=== PATIENT | female | born 1945 | race Caucasian/White ===

== ENCOUNTER 2020-02-11 11:33 | Outpatient (CLI) | payer OTHER, SELFPAY ==
[2020-02-11 11:58] LABS: Hematocrit 46.9 % (37.0-47.0); Hemoglobin 15.5 g/dL (12.0-15.0); Mean Corpuscular Hemoglobin 31.8 pg (26-34); Mean Corpuscular Volume 96.1 fl (80-100); Mean Platelet Volume 9.9 fl (7.4-10.4); Platelet Count Result 296 k/mm3 (150-375); Red Blood Count 4.88 M/mm3 (4.2-5.4); Red Cell Distribution Width 13.2 % (11.5-14.5); White Blood Count 9.2 K/mm3 (4.5-10.0)
[2020-02-11 12:05] LABS: Add Urine Microscopic? YES; Appearance Urine Turbid (Clear); Bacteria Urine Trace /hpf; Bilirubin Urine Negative (Negative); Blood Urine Negative (Negative); Color Urine Yellow (Yellow); Glucose Urine UA Negative (Negative); Ketones Urine Negative (Negative); Leukocyte Esterase Ur 1+ LEU/UL (NEGATIVE); Mucus Urine Rare /lpf; Nitrate Urine Negative (Negative); Protein Urine Negative (Negative); Specific Grav Ur 1.015 (1.001-1.035); Squamous Epithelial Cell Urine Occasional /hpf (Few); Urobilinogen Urine Negative mg/dL (<2.0); WBC Urine 0-3 /hpf (0-3)
[2020-02-11 12:24] LABS: Hemoglobin A1C 5.1 % (<5.7)
[2020-02-11 12:41] LABS: Vitamin D 25 Hydroxy 70.3 ng/mL
[2020-02-11 13:18] LABS: Albumin Level 4.3 g/dL (3.5-5.1); Alkaline Phosphatase 58 U/L (38-126); Anion Gap 12.1 mmol/L (7-16); Aspartate Amino Transferase 28 U/L (14-36); Bilirubin,Total 0.6 mg/dL (0.2-1.3); Blood Urea Nitrogen 25 mg/dL (7-17); Calcium 9.6 mg/dL (8.4-10.2); Carbon Dioxide 27 mmol/L (22-30); Chloride 100 mmol/L (98-107); Cholesterol 175 mg/dL (0-200); Estimated Glomerular Filt Rate > 60; Glucose 58 mg/dL (65-105); HDL Direct 80 mg/dL; Potassium 4.1 mmol/L (3.4-5.0); Sodium 135 mmol/L (137-145); Triglycerides 87 mg/dL (<150)
[2020-02-11 13:24] LABS: LDL Cholesterol Direct 71 mg/dL
[2020-02-11 13:37] LABS: Alanine Aminotransferase 16 U/L (4-35)
== END 2020-02-11 11:34 | disposition home or self-care (01) ==
LOC: ANHLAB 11:39
PROVIDERS: PCP Internal Medicine; Visit Provider Internal Medicine
DX: I10 Essential (primary) hypertension (principal); E78.5 Hyperlipidemia, unspecified; R31.29 Other microscopic hematuria; Z79.899 Other long term (current) drug therapy
CPT/HCPCS: 36415; 80053; 80061; 81001; 82306; 83036; 84443; 85027

== ENCOUNTER 2020-08-10 11:08 | Outpatient (CLI) | payer OTHER, SELFPAY ==
[2020-08-10 11:41] LABS: Hematocrit 45.7 % (37.0-47.0); Hemoglobin 15.3 g/dL (12.0-15.0); Mean Corpuscular HGB Conc 33.5 g/dl (32-36); Mean Corpuscular Hemoglobin 32.6 pg (26-34); Mean Corpuscular Volume 97.2 fl (80-100); Mean Platelet Volume 9.7 fl (7.4-10.4); Platelet Count Result 288 k/mm3 (150-375); Red Cell Distribution Width 13.4 % (11.5-14.5); White Blood Count 7.6 K/mm3 (4.5-10.0)
[2020-08-10 11:55] LABS: Alanine Aminotransferase 17 U/L (4-35); Albumin Level 3.9 g/dL (3.5-5.1); Alkaline Phosphatase 59 U/L (38-126); Anion Gap 5 mmol/L (8-16); Aspartate Amino Transferase 26 U/L (14-36); Bilirubin,Total 0.5 mg/dL (0.2-1.3); Blood Urea Nitrogen 15 mg/dL (7-17); Carbon Dioxide 30 mmol/L (22-30); Chloride 102 mmol/L (98-107); Estimated Glomerular Filt Rate > 60; Glucose 78 mg/dL (65-105); Potassium 4.1 mmol/L (3.4-5.0); Sodium 137 mmol/L (137-145)
== END 2020-08-10 11:09 | disposition home or self-care (01) ==
PROVIDERS: PCP Internal Medicine; Visit Provider Internal Medicine
DX: E78.5 Hyperlipidemia, unspecified (principal); I10 Essential (primary) hypertension
CPT/HCPCS: 36415; 80053; 85027

== ENCOUNTER 2020-08-18 09:33 | Outpatient (CLI) | payer OTHER, SELFPAY ==
--- NOTE | ~2020-08-18 | XR_ITS ---
EXAMINATION: XR knee LT 3V DATE: 08/18/2020 09:44 INDICATION: Left knee pain. TECHNIQUE: 3 views of left knee were obtained. COMPARISON: None. FINDINGS: There is lateral subluxation of patella. No fracture. There is severe osteoarthritis of pat ellofemoral compartment and moderate osteoarthritis of medial and lateral compartments. No knee joint effusion. IMPRESSION: 1. Severe left knee osteoarthritis. Reviewed, dictated and finalized at location A. E'S CLERK
--- NOTE | ~2020-08-18 | XR_ITS ---
EXAMINATION: XR knee RT 3V DATE: 08/18/2020 09:44 INDICATION: Right knee pain. TECHNIQUE: 3 views of right knee were obtained. COMPARISON: Right knee radiographs 02/26/2017 FINDINGS: There is lateral subluxation of patella. No fracture. There is severe osteoarthritis of med ial and patellofemoral compartments and mild osteoarthritis of lateral compartment. No knee joint eff usion. There are loose bodies in the knee joint posteriorly. IMPRESSION: 1. Severe right knee osteoarthritis. 2. Loose bodies in the knee joint. Reviewed, dictated and finalized at location A. TRAILER FILLER
== END 2020-08-18 09:34 | disposition home or self-care (01) ==
PROVIDERS: PCP Internal Medicine; Visit Provider Internal Medicine
DX: M89.49 Other hypertrophic osteoarthropathy, multiple sites (principal); M23.41 Loose body in knee, right knee
CPT/HCPCS: 73562

== ENCOUNTER → 2020-10-29 00:36 | Outpatient (CLI) | payer OTHER, SELFPAY ==
[2020-10-29 20:54] LABS: SARS-CoV-2 RNA PCR Negative
== END ==
PROVIDERS: PCP Internal Medicine; Visit Provider Internal Medicine Gastroenterology
DX: Z01.812 Encounter for preprocedural laboratory examination (principal); Z20.822 Contact with and (suspected) exposure to COVID-19
CPT/HCPCS: C9803; U0003; U0005

== ENCOUNTER 2020-11-01 02:43 | Day surgery (SDC) | payer OTHER, SELFPAY ==
[2020-10-20 12:22] VITALS: BMI 35.9
[2020-11-01 07:04] VITALS: BP 130/82; PULSE 71; RESP 18; TEMP 36.1; O2SAT 98; BMI 36.6
[2020-11-01] MEDS: LACTATED RINGERS 1,000 ML 150 ML IV CONT (07:13)
--- NOTE | 2020-11-01 07:44 | WPDANESEPPF ---
Anes - Initial Pre Proc Eval Procedure: Operation Date: 11/01/20 08:15 Proposed Procedures p Screening Colonoscopy - Austyn Dotson MD Date/Time: 11/01/20 07:44 Surgeon: Austyn Dotson MD Pre Op Diagnosis: neoplasm screening Patient Data Age: 75 Gender: F Height: 4 ft 10 in Weight: 79.5 kg Last Vital Signs Temp 97 F L 11/01/20 07:04 Pulse 71 11/01/20 07:04 Resp 18 11/01/20 07:04 BP 130/82 11/01/20 07:04 Pulse Ox 98 11/01/20 07:04 Allergies Allergy/AdvReac Type Severity Reaction Status Date / Time Penicillins Allergy Mild Hives Verified 11/01/20 07:03 Home Medications Medication Instructions Recorded Confirmed Type blood-glucose meter #1 each 02/11/20 08/18/20 Rx lancets #100 each 02/11/20 08/18/20 Rx blood sugar diagnostic #300 each 03/07/20 08/18/20 Rx lisinopril 20 mg tablet See Rx Instructions .ROUTE 07/06/20 10/20/20 Rx .COMPLEX #90 tablet atorvastatin 20 mg tablet 20 mg PO DAILY #90 tablet 08/01/20 10/20/20 Rx hydrochlorothiazide 12.5 mg tablet See Rx Instructions .ROUTE 10/03/20 10/20/20 Rx .COMPLEX #90 tablet Patient hx anesthesia problems: none Family hx anesthesia problems: none PMFSH Past Medical History Medical History (Updated 08/25/20 @ 15:41 by Stephenie Griggs, RT(R)) Arthritis Benign essential hypertension Bilateral knee pain Claustrophobia Degenerative joint disease of knee Dyslipidemia Encounter for screening colonoscopy Hx of colonic polyps Hypoglycemia Microscopic hematuria Midline low back pain without sciatica Obesity (BMI 35.0-39.9 without comorbidity) Osteoarthritis Osteopenia of necks of both femurs Shortness of breath Stress Vaccine counseling Vertigo Weight gain Surgical History Surgical History (Updated 08/25/20 @ 15:41 by Stephenie Griggs, RT(R)) History of carpal tunnel release History of cataract extraction 2019, [facility] History of cholecystectomy 1975 History of D&C 2017, Dr. Cortes History of foot surgery Bunionectomy S/P insertion of spinal cord stimulator 2019, [facility] Family History Family History (Updated 08/25/20 @ 15:41 by Stephenie Griggs, RT(R)) Father Family history of malignant neoplasm of bone Other Arthritis Social History Social History (Updated 08/25/20 @ 15:42 by Stephenie Griggs, RT(R)) Smoking status: Never smoker Alcohol intake: never Substance use: never Substance use type: does not use Gender identity (if verbalized by the patient): Female Spiritual care concerns: No Anes - Eval Final PreProcedure Day of Procedure 11/01/20 07:44 Patient weight: obese Heart: regular rate and rhythm and murmur Lungs: clear to auscultation Airway: Mallampati scale class II Neurological: alert and oriented Last oral intake: >/= 8 hours ASA classification: III Emergent: no Anesthetic plan: proceed Anesthesia type and monitoring: general GIVS and standard monitoring Informed Consent: The patient's anesthetic plan and its attendant risks and benefits were discussed with the patient/family/POA. Questions were solicited and answers provided to the satisfaction of the patient/family/POA.
--- NOTE | 2020-11-01 08:42 | PM.HPGS ---
History of Present Illness History of Present Illness Consent: Risks, benefits, and alternatives have been discussed and questions answered. Patient agrees to proceed with procedure. Chief complaint: neoplasm screening Narrative: Lyly Pham is a 75 year old female with colon polyp ~ 6 years ago. Review of Systems Constitutional: Constitutional: Denies headache(s) and Denies weakness Eyes: Eyes: Denies blurry vision ENT: Reports Normal hearing present, Denies headache(s) and Denies neck pain Cardiovascular: Cardiovascular: Denies chest pain and Denies dyspnea Respiratory: Respiratory: Denies dyspnea Gastrointestinal: Gastrointestinal: Reports no additional gastrointestinal complaints Genitourinary: Genitourinary: Denies dysuria Musculoskeletal: Musculoskeletal: Denies neck pain Integumentary/Breasts: Skin/Breast: Denies dry skin Neurologic: Reports Normal hearing present, Denies headache(s) and Denies weakness Psychiatric: Psychiatric: Denies anxiety Endocrine: Endocrine: Denies change in body appearance Hematologic/Lymphatic: Hematologic/Lymphatic: Denies easy bleeding Allergic/Immunologic: Allergic/Immunologic: Denies urticaria PMFSH Past Medical History Medical History (Updated 08/25/20 @ 15:41 by Stephenie Griggs, RT(R)) Arthritis Benign essential hypertension Bilateral knee pain Claustrophobia Degenerative joint disease of knee Dyslipidemia Encounter for screening colonoscopy Hx of colonic polyps Hypoglycemia Microscopic hematuria Midline low back pain without sciatica Obesity (BMI 35.0-39.9 without comorbidity) Osteoarthritis Osteopenia of necks of both femurs Shortness of breath Stress Vaccine counseling Vertigo Weight gain Surgical History Surgical History (Updated 08/25/20 @ 15:41 by Stephenie Griggs, RT(R)) History of carpal tunnel release History of cataract extraction 2019, [facility] History of cholecystectomy 1975 History of D&C 2017, Dr. Cortes History of foot surgery Bunionectomy S/P insertion of spinal cord stimulator 2019, [facility] Family History Family History (Updated 08/25/20 @ 15:41 by Stephenie Griggs, RT(R)) Father Family history of malignant neoplasm of bone Other Arthritis Social History Social History (Updated 08/25/20 @ 15:42 by Stephenie Griggs, RT(R)) Smoking status: Never smoker Alcohol intake: never Substance use: never Substance use type: does not use Gender identity (if verbalized by the patient): Female Spiritual care concerns: No Meds Home Medications and Allergies Home Medications Medication Instructions Recorded Confirmed Type blood-glucose meter #1 each 02/11/20 08/18/20 Rx lancets #100 each 02/11/20 08/18/20 Rx blood sugar diagnostic #300 each 03/07/20 08/18/20 Rx lisinopril 20 mg tablet See Rx Instructions .ROUTE 07/06/20 10/20/20 Rx .COMPLEX #90 tablet atorvastatin 20 mg tablet 20 mg PO DAILY #90 tablet 08/01/20 10/20/20 Rx hydrochlorothiazide 12.5 mg tablet See Rx Instructions .ROUTE 10/03/20 10/20/20 Rx .COMPLEX #90 tablet Allergies Allergy/AdvReac Type Severity Reaction Status Date / Time Penicillins Allergy Mild Hives Verified 11/01/20 07:03 Vital Signs Vital Signs - 24 hr 11/01/20 07:04 Temperature 97 F L Pulse Rate 71 Respiratory Rate 18 Blood Pressure 130/82 Pulse Oximetry 98 Exam Const: General: comfortable and no acute distress HENMT: General nose exam: Normal nares present Eyes: General: appearance normal, both eyes and all related structures Neck: Neck: no JVD Resp: Auscultation: clear to auscultation bilaterally Cardio: Rate: regular rate Rhythm: regular rhythm GI: Inspection: non-distended GI Palp: Yes Soft to palpation Skin: General skin exam: normal color Neuro: General: gait normal Speech: normal speech Extrem: General: normal to inspection Psych: Mental Status: mental status grossly normal Asses
[2020-11-01 08:46] VITALS: BP 100/57; PULSE 60; RESP 22; O2SAT 98
[2020-11-01 08:56] VITALS: BP 106/62; PULSE 54; RESP 17; O2SAT 99
[2020-11-01 09:06] VITALS: BP 114/71; PULSE 53; RESP 20; O2SAT 98
== END 2020-11-01 08:59 | disposition home or self-care (01) ==
PROVIDERS: PCP Internal Medicine; Visit Provider Internal Medicine Gastroenterology
PROC: 0DJD8ZZ Inspection of Lower Intestinal Tract, Via Natural or Artificial Opening Endoscopic (ICD-10-PCS; CPT 45378; principal; 2020-11-01 08:15)
DX: Z12.11 Encounter for screening for malignant neoplasm of colon (principal); D12.0 Benign neoplasm of cecum; D12.3 Benign neoplasm of transverse colon; K64.8 Other hemorrhoids; K57.30 Diverticulosis of large intestine without perforation or abscess without bleeding; E11.9 Type 2 diabetes mellitus without complications; E78.5 Hyperlipidemia, unspecified; E66.9 Obesity, unspecified; M85.852 Other specified disorders of bone density and structure, left thigh; M17.10 Unilateral primary osteoarthritis, unspecified knee; M85.851 Other specified disorders of bone density and structure, right thigh; R42 Dizziness and giddiness; R31.29 Other microscopic hematuria; F40.240 Claustrophobia; Z90.49 Acquired absence of other specified parts of digestive tract; Z86.010 Personal history of colon polyps; Z98.49 Cataract extraction status, unspecified eye
CPT/HCPCS: 45385; 88305; C9803; J2704; J7120; U0003; U0005

== ENCOUNTER 2021-01-25 07:22 | Outpatient (CLI) | payer OTHER, SELFPAY ==
[2021-01-25 08:19] LABS: Basophils Absolute Auto 0.1 K/mm3 (0.0-0.1); Basophils Percent Auto 1.5 % (0.2-1.2); Eosinophils Absolute Auto 0.2 K/mm3 (0-0.3); Eosinophils Percent Auto 3.6 % (0-4.4); Hematocrit 45.9 % (37.0-47.0); Hemoglobin 14.9 g/dL (12.0-15.0); Immature Granulocyte Absolute 0.01 K/mm3 (0.00-0.031); Immature Granulocyte Percent A 0.2 % (0-0.5); Lymphocytes Absolute Auto 2.23 K/mm3 (0.9-3.2); Lymphocytes Percent Auto 36.5 % (18.3-44.2); Mean Corpuscular HGB Conc 32.5 g/dl (32-36); Mean Corpuscular Hemoglobin 32.4 pg (26-34); Mean Corpuscular Volume 99.8 fl (80-100); Mean Platelet Volume 9.7 fl (7.4-10.4); Monocytes Absolute Auto 0.5 K/mm3 (0.1-0.6); Monocytes Percent Auto 7.9 % (2.6-8.5); Neutrophils Absolute Auto 3.1 K/mm3 (1.3-6.7); Neutrophils Percent Auto 50.3 % (45.5-73.1); Platelet Count Result 304 k/mm3 (150-375); White Blood Count 6.1 K/mm3 (4.5-10.0)
[2021-01-25 08:29] LABS: Alanine Aminotransferase 14 U/L (4-35); Albumin Level 3.9 g/dL (3.5-5.1); Alkaline Phosphatase 63 U/L (38-126); Anion Gap 6 mmol/L (8-16); Aspartate Amino Transferase 22 U/L (14-36); Bilirubin,Total 0.4 mg/dL (0.2-1.3); Blood Urea Nitrogen 18 mg/dL (7-17); Calcium 9.3 mg/dL (8.4-10.2); Carbon Dioxide 28 mmol/L (22-30); Chloride 104 mmol/L (98-107); Cholesterol 164 mg/dL (0-200); Estimated Glomerular Filt Rate > 60; Glucose 87 mg/dL (65-110); HDL Direct 67 mg/dL; Potassium 4.4 mmol/L (3.4-5.0); Sodium 138 mmol/L (137-145); Triglycerides 63 mg/dL (<150)
[2021-01-25 08:39] LABS: Creatinine Urine 97.4 mg/dL
[2021-01-25 08:44] LABS: MALB Creatinine Ratio 8.9 mg/g (0-30); Microalbumin Urine Random 8.7 mg/L (0-16.7)
[2021-01-25 08:46] LABS: LDL Cholesterol Direct 68 mg/dL
== END 2021-01-25 07:23 | disposition home or self-care (01) ==
PROVIDERS: PCP Internal Medicine; Visit Provider Internal Medicine
DX: E78.2 Mixed hyperlipidemia (principal); I10 Essential (primary) hypertension; E78.5 Hyperlipidemia, unspecified; E55.9 Vitamin D deficiency, unspecified
CPT/HCPCS: 36415; 80053; 80061; 82043; 82306; 84443; 85025

== ENCOUNTER 2021-01-26 09:55 | Outpatient (CLI) | payer OTHER, SELFPAY ==
--- NOTE | 2021-01-26 10:47 | ECG_ITS ---
Measurements Intervals [place] Rate: 60 P: 20 TN: 124 QRS: -11 QRSD: 85 T: 48 QT: 392 QTc: 393 Interpretive Statements SINUS RHYTHM WITH SINUS ARRHYTHMIA INCOMPLETE RIGHT BUNDLE BRANCH BLOCK DELAYED PRECORDIAL R/S TRANSITION LOW QRS VOLTAGE IN PRECORDIAL LEADS BASELINE ARTIFACT- I, III, AVR, AVL, AVF BORDERLINE ECG Electronically Signed On 01-26-2021 11:48:03 CDT by Keshawn Burks D.O.
[2021-01-26 11:47] LABS: INR 0.9; Prothrombin Time 11.9 Seconds (11.1-14.7)
[2021-01-26 11:48] LABS: Partial Thromboplastin Time 26.6 SECONDS (22.3-36.8)
[2021-01-26 11:52] LABS: Add Urine Microscopic? YES; Appearance Urine Clear (Clear); Bilirubin Urine Negative (Negative); Blood Urine 1+ (Negative); Color Urine Yellow (Yellow); Glucose Urine UA Negative (Negative); Ketones Urine Negative (Negative); Leukocyte Esterase Ur Negative LEU/UL (Negative); Mucus Urine Rare /lpf; Nitrate Urine Negative (Negative); Protein Urine Negative (Negative); Specific Grav Ur 1.017 (1.001-1.035); Squamous Epithelial Cell Urine Occasional /hpf (Few); Urobilinogen Urine Negative mg/dL (<2.0); WBC Urine 0-3 /hpf
[2021-01-26 11:56] LABS: Urine Cotinine NEGATIVE
[2021-01-26 12:00] LABS: Hemoglobin A1C 5.3 % (<5.7)
== END 2021-01-26 09:56 | disposition home or self-care (01) ==
LOC: ANHSURGERY 09:56
PROVIDERS: PCP Internal Medicine; Visit Provider Orthopaedic Surgery
DX: Z01.818 Encounter for other preprocedural examination (principal); M17.11 Unilateral primary osteoarthritis, right knee; I45.10 Unspecified right bundle-branch block; Z79.899 Other long term (current) drug therapy
CPT/HCPCS: 80307; 81001; 83036; 85610; 85730; 86850; 86900; 86901; 87081; 93005

== ENCOUNTER 2021-02-09 12:48 | Observation (INO) | payer OTHER, SELFPAY ==
[2021-01-26 10:00] VITALS: BMI 38.1
[2021-01-26 10:37] VITALS: BP 138/68; PULSE 63; RESP 16; TEMP 37; O2SAT 97
--- NOTE | 2021-02-07 15:38 | WPDANESEPPF ---
Anes - Initial Pre Proc Eval Procedure: Operation Date: 02/08/21 07:30 Proposed Procedures p Right Total Knee Arthroplasty - Geovanny Lala MD Date/Time: 02/07/21 15:38 Surgeon: Geovanny Lala MD Pre Op Diagnosis: Right Knee DJD Patient Data Age: 75 Gender: F Height: 1.45 m Weight: 80 kg Last Vital Signs Temp 37.0 C 01/26/21 10:37 Pulse 63 01/26/21 10:37 Resp 16 01/26/21 10:37 BP 138/68 01/26/21 10:37 Pulse Ox 97 01/26/21 10:37 Allergies Allergy/AdvReac Type Severity Reaction Status Date / Time Penicillins Allergy Severe Hives Verified 02/08/21 06:11 vancomycin AdvReac Mild Rash and Verified 02/08/21 06:11 itching Home Medications Medication Instructions Recorded Confirmed Type acetaminophen [Tylenol] 1,000 mg PO PRN PRN 01/26/21 02/08/21 History atorvastatin 20 mg PO HS 01/26/21 02/08/21 History biotin 1,000 mcg PO DAILY 01/26/21 02/08/21 History multivitamin,on-gfnp-ttekxuco 1 tablet PO DAILY 01/26/21 02/08/21 History [Complete Multivitamin] hydrochlorothiazide 12.5 mg PO DAILY 02/08/21 02/08/21 History lisinopril 20 mg PO DAILY 02/08/21 02/08/21 History ECG: Date of Service: 01/26/21 Procedure(s): CA 12 lead EKG Accession Number(s): [id number] cc: ~ Measurements Intervals [place] Rate: 60 P: 20 ND: 124 QRS: -11 QRSD: 85 T: 48 QT: 392 QTc: 393 Interpretive Statements SINUS RHYTHM WITH SINUS ARRHYTHMIA INCOMPLETE RIGHT BUNDLE BRANCH BLOCK DELAYED PRECORDIAL R/S TRANSITION LOW QRS VOLTAGE IN PRECORDIAL LEADS BASELINE ARTIFACT- I, III, AVR, AVL, AVF BORDERLINE ECG Electronically Signed On 01-26-2021 11:48:03 CDT by Keshawn Burks D.O. Patient hx anesthesia problems: none Family hx anesthesia problems: none PMFSH Past Medical History Medical History Arthritis Bilateral knee pain Claustrophobia Degenerative joint disease of knee Dyslipidemia Encounter for screening colonoscopy Hx of colonic polyps Hypoglycemia Microscopic hematuria Midline low back pain without sciatica Obesity (BMI 35.0-39.9 without comorbidity) Osteoarthritis Osteopenia of necks of both femurs Shortness of breath Stress Vaccine counseling Vertigo Weight gain Surgical History Surgical History History of carpal tunnel release History of cataract extraction 2018, [facility] History of cholecystectomy 1975 History of D&C 2016, Dr. Cortes History of foot surgery Bunionectomy S/P insertion of spinal cord stimulator 2019, [facility] Family History Family History Father Family history of malignant neoplasm of bone Other Arthritis Social History Social History Additional smoking assessment comments: DENIES ANY FORM OF TOBACCO USE Alcohol intake: never Substance use: never Substance use type: does not use Living arrangements: alone Gender identity (if verbalized by the patient): Female Spiritual care concerns: No Anes - Eval Final PreProcedure Day of Procedure 02/07/21 15:38 Patient weight: obese Heart: regular rate and rhythm Lungs: clear to auscultation and normal air movement Airway: Mallampati scale class II Neurological: alert and oriented Last oral intake: >/= 8 hours ASA classification: III Emergent: no Anesthetic plan: proceed Anesthesia type and monitoring: general LMA Informed Consent: The patient's anesthetic plan and its attendant risks and benefits were discussed with the patient/family/POA. Ques
--- NOTE | 2021-02-07 15:40 | WPDANESPNB ---
Anes - Peripheral Nerve Block Date/Time: 02/07/21 15:40 I have discussed with the patient/family/POA the placement of a peripheral nerve block for post-operative pain management, including associated risks, benefits, complications, and side effects. Alternative methods of post-operative analgesia were detailed. Questions were solicited and answers provided to the satisfaction of the patient/family/POA. Time-Out: A pre-procedural Time-Out was completed immediately before starting the procedure and confirmed: Patient Identification, Site, Procedure, Patient Position and the Availability of Requisite Equipment. Clinical Indications: Acute post-operative pain management requested by the operative surgeon. Nerve Block Insertion Note Anes-nerve block: adductor canal right Patient position: supine Skin prep: chlorhexidine Needle: 22 gauge, stimulating, insulated echogenic needle. Needle length: 80 mm Technique: ultrasound Technique comment: in plane Injectate: bupivacaine 0.5% with epi 5 mcg/ml (30cc) Observations: tolerated well Complications: none Procedure start time:: 740 Procedure end time:: 745
[2021-02-08] VITALS (14 sets, daily range): BP systolic 124–161; BP diastolic 55–99; PULSE 51–77; RESP 12–20; TEMP 35.8–36.5; O2SAT 94–100
[2021-02-08] MEDS: ACETAMINOPHEN 500 MG TABLET 1000 MG PO (06:38)
[2021-02-08] MEDS: LACTATED RINGERS 1,000 ML 30 ML IV CONT ×2 (06:45→10:32)
[2021-02-08] MEDS: TRANEXAMIC ACID 1,000MG/ISO100 1,000 MG/100 ML BAG 200 MG IVPB (06:48)
--- NOTE | 2021-02-08 07:32 | WPDHPUPDATE1 ---
History and Physical Update Update Date/Time: 02/08/21 07:32 History and Physical has been reviewed, including an updated exam of the patient. There are NO changes in the patient's condition. Risks, benefits, and alternatives have been discussed and questions answered. Patient agrees to proceed with procedure.
[2021-02-08] MEDS: ceFAZolin 2 GM/D5W 50 ML 2 GM/50 ML BAG IVPB ×3 (07:44→23:46)
--- NOTE | 2021-02-08 10:34 | W.PM.PROC2 ---
Procedure Note - Detailed Date of Procedure 02/08/21 Pre-op Diagnosis Right Knee DJD Post-op Diagnosis same Procedure Performed R TKA Surgeon Geovanny Lala MD Anesthesia general Description of Procedure THE RIGHT KNEE WAS PREPPED AND DRAPED IN THE STERILE FASHION. THERE WAS A 10 DEGREE FLEXION CONTRACTURE. A MIDLINE SKIN INCISION WAS MADE. A MEDIAL PARAPATELLAR ARTHROTOMY WAS MADE. THE PATELLA WAS EVERTED. THERE WAS TRICOMPARTMENT DJD. THERE WAS MINIMAL PATELLA DJD. AN INTRAMEDULLARY FREDA WAS PLACED IN THE FEMUR. A DISTAL FEMORAL CUT WAS MADE IN 5 DEGREES OF VALGUS REMOVING APPROXIMATELY 9 MM OF BONE FROM THE DISTAL FEMUR. THE FEMUR WAS SIZED TO 57.5. A 57.5 FEMORAL CUTTING BLOCK WAS PLACED IN 3 DEGREES OF EXTERNAL ROTATION AND IN ALIGNMENT WITH SAUD'S LINE AND THE TRANSEPICONDYLAR AXIS. ANTERIOR POSTERIOR AND CHAMFER CUTS WERE MADE. THE CUTS WERE EXCELLENT. NEXT AN INTRAMEDULLARY CUTTING GUIDE WAS PLACED IN THE TIBIA. A TRANS TIBIAL CUT WAS MADE ALONG THE LONG AXIS OF THE TIBIA. APPROXIMATELY 10 MM OF BONE WAS REMOVED FROM THE HIGH SIDE OF THE TIBIA. THE TIBIA WAS THEN PLANED TO A SMOOTH SURFACE. POSTERIOR FEMORAL OSTEOPHYTES WERE REMOVED FROM THE FEMORAL CONDYLES. A 71 TIBIAL TRIAL WAS PLACED IN ALIGNMENT WITH THE 1/3 MEDIAL ASPECT OF THE TIBIAL TUBERCLE. THEN A 57.5 FEMORAL TRIAL COMPONENT WAS PLACED. BOTH HAD EXCELLENT FITS. EVENTUALLY A 20 MM POLYETHYLENE TRIAL COMPONENT WAS PLACED. THE KNEE WAS TAKEN THROUGH A RANGE OF MOTION. THE KNEE CAME OUT TO FULL EXTENSION. THERE WAS NO ABNORMAL TILT TO THE PATELLA. THERE WAS GOOD A/P AND VARUS/VALGUS STABILITY. THERE WAS NO EXCESSIVE ROLL BACK WITH FLEXION. THE TRIAL COMPONENTS WERE REMOVED. THEN A 57.5 FEMORAL COMPONENT AND 71 TIBIAL COMPONENT WITH A 20 POLYETHYLENE COMPONENT WERE CEMENTED INTO PLACE. ONCE THE CEMENT WAS HARD THE KNEE WAS TAKEN THROUGH A ROM AGAIN AND FOUND TO BE STABLE WITH NO PATELLA TILT NO EXCESSIVE ROLL BACK WITH FLEXION AND GOOD STABILITY WITH COMPLETE AND FULL EXTENSION. THE KNEE WAS IRRIGATED WITH STERILE BETADINE AND WATER FOR ABOUT 3 MINUTES. THE BLEEDERS WERE CAUTERIZED. THE ARTHROTOMY WAS REPAIRED WITH NUMBER 1 VICRYL. THE SUB CUTANEOUS LAYER WITH 2-0 VICRYL AND THE SKIN WITH KASSANDRA. THE WOUND WAS WASHED AND A STERILE DRESSING WAS APPLIED. PATIENT WAS EXTUBATED. Estimated Blood Loss -150.0 Pathology none sent Complications No immediate complications Condition stable Disposition PACU
[2021-02-08] MEDS: fentaNYL CITRATE INJ (*CRX) 100 MCG/2 ML VIAL 25 MCG IV PUSH ×8 (10:39→11:14)
[2021-02-08] MEDS: ONDANSETRON INJ 4 MG/2 ML VIAL IV PUSH ×2 (12:31→17:26)
--- NOTE | 2021-02-08 12:55 | ADMGEN ---
This patient, Lyly Pham, was admitted to Medical Room 253-01. Patient/family oriented to hospital policies and general routines including ID bracelet, bed and alarms, visiting hours, pain management, procedures, bathroom and other care routines, personal items, smoking policy, room service/diet, and visiting hours. Information on how to activate the Rapid Response Team has been discussed. Patient/Family are encouraged to report perceived risks to care and to ask questions if they do not understand what they are told or what they should do.
[2021-02-08] MEDS: SODIUM CHLORIDE 0.9% IV 1,000 ML 125 ML IV CONT (13:40)
[2021-02-08] MEDS: HYDROcodone/acetaminophen (*CRX) 7.5-325 MG TABLET 1 TAB PO ×2 (13:44→23:46)
[2021-02-08] MEDS: DOCUSATE SODIUM 100 MG CAPSULE PO (16:12)
[2021-02-08] MEDS: oxyCODONE/ACETAMINOPHEN (*CRX) 5-325 MG TABLET 1 TABLET PO (17:25)
[2021-02-08] MEDS: ATORVASTATIN 20 MG TABLET PO (21:04)
[2021-02-08] MEDS: diphenhydrAMINE HCl INJ 50 MG/ML VIAL 25 MG IV PUSH (21:04)
[2021-02-08] MEDS: ASPIRIN 325 MG ENTERIC TABLET PO (21:04)
[2021-02-08] MEDS: FAMOTIDINE 20 MG TABLET PO (21:04)
--- NOTE | ~2021-02-09 | XR_ITS ---
EXAMINATION: XR knee RT 2V DATE: 02/08/2021 10:48 INDICATION: Postoperative evaluation following right total knee arthroplasty. TECHNIQUE: Anteroposterior and lateral views of the right knee were obtained. COMPARISON: 08/25/2020 FINDINGS: Right total knee arthroplasty without patellar resurfacing appears well seated and in near anatomic a lignment. No fractures identified. Small bone fragment projecting over the soft tissues medial to th e medial tibial plateau. Skin carlos eduardo and expected postoperative subcutaneous, intramedullary and int ra-articular gas. IMPRESSION: 1. Right total knee arthroplasty, negative for postoperative purposes. Reviewed, dictated and finalized at location A.
[2021-02-09 00:12] VITALS: BP 121/60; PULSE 58; RESP 20; TEMP 36.2; O2SAT 98
[2021-02-09 05:08] VITALS: BP 119/59; PULSE 63; RESP 20; TEMP 36.2; O2SAT 97
[2021-02-09 05:45] LABS: Basophils Percent Auto 0.3 % (0.2-1.2); Eosinophils Percent Auto 0.3 % (0-4.4); Hematocrit 37.7 % (37.0-47.0); Hemoglobin 12.5 g/dL (12.0-15.0); Immature Granulocyte Absolute 0.04 K/mm3 (0.00-0.031); Immature Granulocyte Percent A 0.3 % (0-0.5); Lymphocytes Absolute Auto 2.09 K/mm3 (0.9-3.2); Lymphocytes Percent Auto 17.8 % (18.3-44.2); Mean Corpuscular HGB Conc 33.2 g/dl (32-36); Mean Corpuscular Hemoglobin 32.3 pg (26-34); Mean Corpuscular Volume 97.4 fl (80-100); Mean Platelet Volume 9.7 fl (7.4-10.4); Monocytes Absolute Auto 1.4 K/mm3 (0.1-0.6); Monocytes Percent Auto 12.3 % (2.6-8.5); Neutrophils Absolute Auto 8.1 K/mm3 (1.3-6.7); Platelet Count Result 248 k/mm3 (150-375); Red Blood Count 3.87 M/mm3 (4.2-5.4); Red Cell Distribution Width 13.2 % (11.5-14.5); White Blood Count 11.7 K/mm3 (4.5-10.0)
[2021-02-09] MEDS: oxyCODONE/ACETAMINOPHEN (*CRX) 5-325 MG TABLET 1 TABLET PO ×4 (05:54→19:41)
[2021-02-09 05:59] LABS: Anion Gap 5 mmol/L (8-16); Blood Urea Nitrogen 16 mg/dL (7-17); Calcium 8.3 mg/dL (8.4-10.2); Carbon Dioxide 25 mmol/L (22-30); Chloride 101 mmol/L (98-107); Estimated Glomerular Filt Rate > 60; Glucose 111 mg/dL (65-110); Potassium 3.8 mmol/L (3.4-5.0); Sodium 131 mmol/L (137-145)
[2021-02-09] MEDS: hydroCHLOROthiazide 12.5 MG CAPSULE PO (08:14)
[2021-02-09] MEDS: DOCUSATE SODIUM 100 MG CAPSULE PO ×2 (08:14→16:53)
[2021-02-09] MEDS: ASPIRIN 325 MG ENTERIC TABLET PO ×2 (08:14→21:28)
[2021-02-09] MEDS: THERAPEUTIC MULTIVITAMINS/MINERALS TAB (*BKC) 1 TABLET PO (08:14)
[2021-02-09] MEDS: lisinopriL 20 MG TABLET PO (08:15)
[2021-02-09] MEDS: FAMOTIDINE 20 MG TABLET PO ×2 (08:15→21:28)
[2021-02-09 10:00] VITALS: BP 141/61; PULSE 65; RESP 20; TEMP 36.5; O2SAT 99
--- NOTE | 2021-02-09 10:04 | PM.PNORT ---
Progress Note: A&P Assessment and Plan (1) S/P total knee arthroplasty: Qualifiers: Laterality: right Qualified Code(s): Z96.651 - Presence of right artificial knee joint Code(s): Z96.659 - Presence of unspecified artificial knee joint Status: Acute Assessment and Plan: POD #1: Right TKA Continue PT/OT. WBAT. Walker. HIGH FALL RISK. Pain control. Ice knee. Protect skin. SCDs. Incentive Spirometry. DVT prophylaxis. Monitor dressing. Plan to change prior day of discharge. Dispo: Home with Home Health vs Acute Rehab pending progress with PT/OT. Subjective Subjective Date/Time Seen: 02/09/21 10:04 Post Op day: 1 Principal diagnosis: Right Knee DJD Interval history: POD #1: Right TKA Difficulties with nausea yesterday. Tolerating PO intake today. Pain well controlled. No new concerns today. Working with PT/OT. Review of Systems Review of Systems: All systems reviewed & are unremarkable except as noted in HPI and below Constitutional: Constitutional: Denies fever(s) and Denies headache(s) ENT: Denies headache(s) Cardiovascular: Cardiovascular: Denies chest pain, Denies diaphoresis, Denies palpitations and Denies dyspnea Respiratory: Respiratory: Denies dyspnea Gastrointestinal: Gastrointestinal: Denies abdominal pain, Denies constipation, Reports nausea and Denies vomiting Genitourinary: Genitourinary: Reports nocturia and Denies dysuria Musculoskeletal: Musculoskeletal: Reports arthralgias (Right Knee ) and Reports joint swelling (Right Knee ) Neurologic: Denies headache(s) Endocrine: Endocrine: Denies palpitations Exam Const: General: comfortable and no acute distress Resp: Effort & Inspection: normal respiratory effort Cardio: Rate: regular rate Rhythm: regular rhythm GI: GI Palp: Yes Soft to palpation, No Tenderness to palpation present (GI) and No Guarding due to palpation present (GI) Skin: Wounds: wounds noted Other: Incision c/d/i. No surrounding redness/warmth. No hematoma. Mild ecchymosis. No wound dehiscence Neuro: Cognition (Neuro): normal cognition Other: NV intact aside from block. Moves toes. Sensation intact to light touch. +ankle dorsiflexion/plantarflexion. Extrem: Right upper extremity: normal to inspection, full ROM and normal capillary refill Left upper extremity: normal to inspection, full ROM and normal capillary refill Right lower extremity: normal to inspection, full ROM (ROM limited due to recent surgical intervention ) and knee Details: tenderness (diffuse, mild ) and swelling (diffuse, mild ) Left lower extremity: normal to inspection Psych: Mental Status: mental status grossly normal Objective Data Vital Signs Vital Signs: Vital Signs - 24 hr 02/08/21 10:32 02/08/21 10:45 02/08/21 11:00 Temperature 36.5 C Pulse Rate 68 64 58 L Respiratory Rate 13 16 12 Blood Pressure 124/80 131/57 L 131/81 Pulse Oximetry 97 97 95 02/08/21 11:15 02/08/21 11:30 02/08/21 11:45 Temperature Pulse Rate 62 62 59 L Respiratory Rate 12 12 12 Blood Pressure 146/76 H 146/83 H 161/78 H Pulse Oximetry 98 97 100 02/08/21 12:15 02/08/21 12:30 02/08/21 13:00 Temperature 36.2 C L 36.3 C L 36.1 C L Pulse Rate 62 77 60 Respiratory Rate 16 16 16 Blood Pressure 138/91 H 135/81 155/63 H Pulse Oximetry 98 94 100 02/08/21 14:00 02/08/21 18:00 02/08/21 20:00 Temperature 35.9 C L 36.5 C Pulse Rate 56 L 51 L 58 L Respiratory Rate 16 16 20 Blood Pressure 141/55 H 145/79 H Pulse Oximetry 100 100 98 02/08/21 20:28 02/09/21 00:12 02/09/21 05:08 Temperature 35.8 C L 36.2 C L 36.2 C L Pulse Rate 56 L 58 L 63 Respiratory Rate 20 20 20 Blood Pressure 149/76 H 121/60 119/59 L Pulse Oximetry 98 98 97 Intake/Output Intake/Output: Intake & Output 02/06/21 02/07/21 02/08/21 02/09/21 23:59 23:59 23:59 23:59 Intake Total 1100 340 Output Total 450 Balance 650 340 Meds/Results Medications: Active Medications Generi
[2021-02-09] MEDS: ceFAZolin 2 GM/D5W 50 ML 2 GM/50 ML BAG IVPB (10:37)
--- NOTE | 2021-02-09 10:49 | P.PNAN_ITS ---
Anes - Prog Note Post-Op Date/Time: 02/09/21 10:49 Cardiovascular status: normal Respiratory status: normal Airway patency: baseline Mental status: baseline Post-Op hydration status: normal Vital Signs: Last Vital Signs Temp 36.2 C L 02/09/21 05:08 Pulse 63 02/09/21 05:08 Resp 20 02/09/21 05:08 BP 119/59 L 02/09/21 05:08 Pulse Ox 97 02/09/21 05:08 Pain Score (VAS): 0 I/O: Intake & Output 02/08/21 02/09/21 02/09/21 23:59 07:59 15:59 Intake Total 750 340 480 Output Total 450 Balance 300 340 480 Laboratory Tests 02/09/21 05:32 02/09/21 05:32 02/09/21 02/09/21 05:32 05:32 WBC 11.7 H RBC 3.87 L Hgb 12.5 Hct 37.7 MCV 97.4 MCH 32.3 MCHC 33.2 RDW 13.2 Plt Count 248 MPV 9.7 Immature Gran % (Auto) 0.3 Neut % (Auto) 69.0 Lymph % (Auto) 17.8 L [place] % (Auto) 12.3 H Eos % (Auto) 0.3 Baso % (Auto) 0.3 Lymph # (Auto) 2.09 [place] # (Auto) 1.4 H Eos # (Auto) 0.0 Baso # (Auto) 0.0 Abs Immat Gran (auto) 0.04 H Absolute Neuts (auto) 8.1 H Absolute Nucleated RBC 0.0 Nucleated RBC % 0.0 Sodium 131 L Potassium 3.8 Chloride 101 Carbon Dioxide 25 Anion Gap 5 L BUN 16 Creatinine 0.70 Estim Creat Clear Calc Not Reportable Estimated GFR > 60 Glucose 111 H Calcium 8.3 L Post-procedural complaints: none Patient Feedback: Patient satisfied with anesthetic care.
[2021-02-09 14:00] VITALS: BP 118/73; PULSE 69; RESP 20; TEMP 36.5; O2SAT 96
[2021-02-09 20:00] VITALS: BP 96/67; PULSE 72; RESP 20; TEMP 36.1; O2SAT 100
[2021-02-09] MEDS: ATORVASTATIN 20 MG TABLET PO (21:28)
[2021-02-10] MEDS: oxyCODONE/ACETAMINOPHEN (*CRX) 5-325 MG TABLET 1 TABLET PO (01:06)
[2021-02-10 05:29] VITALS: BP 111/51; PULSE 67; RESP 18; TEMP 35.9; O2SAT 96
[2021-02-10] MEDS: HYDROcodone/acetaminophen (*CRX) 7.5-325 MG TABLET 1 TAB PO ×2 (08:33→20:10)
[2021-02-10] MEDS: hydroCHLOROthiazide 12.5 MG CAPSULE PO (08:34)
[2021-02-10] MEDS: DOCUSATE SODIUM 100 MG CAPSULE PO ×2 (08:34→18:11)
[2021-02-10] MEDS: lisinopriL 20 MG TABLET PO (08:34)
[2021-02-10] MEDS: ASPIRIN 325 MG ENTERIC TABLET PO ×2 (08:34→20:06)
[2021-02-10] MEDS: THERAPEUTIC MULTIVITAMINS/MINERALS TAB (*BKC) 1 TABLET PO (08:35)
[2021-02-10] MEDS: FAMOTIDINE 20 MG TABLET PO ×2 (08:35→20:06)
--- NOTE | 2021-02-10 09:23 | PM.PNORT ---
Progress Note: A&P Assessment and Plan (1) S/P total knee arthroplasty: Qualifiers: Laterality: right Qualified Code(s): Z96.651 - Presence of right artificial knee joint Code(s): Z96.659 - Presence of unspecified artificial knee joint Status: Acute Assessment and Plan: POD #2: Right TKA Continue PT/OT. WBAT. Walker. HIGH FALL RISK. Pain control. Ice knee. Protect skin. SCDs. Incentive Spirometry. DVT prophylaxis. Monitor dressing. Change today. Dispo: Acute Rehab today Subjective Subjective Date/Time Seen: 02/10/ 09:23 POD #2: Right TKA Improvement in nausea. Tolerating PO intake today. Pain well controlled. No new concerns today. Working well with PT/OT. Review of Systems Review of Systems: All systems reviewed & are unremarkable except as noted in HPI and below Constitutional: Constitutional: Denies fever(s) and Denies headache(s) ENT: Denies headache(s) Cardiovascular: Cardiovascular: Denies chest pain, Denies diaphoresis, Denies palpitations and Denies dyspnea Respiratory: Respiratory: Denies dyspnea Gastrointestinal: Gastrointestinal: Denies abdominal pain, Denies constipation, Reports nausea and Denies vomiting Genitourinary: Genitourinary: Reports nocturia and Denies dysuria Musculoskeletal: Musculoskeletal: Reports arthralgias (Right Knee ) and Reports joint swelling (Right Knee ) Neurologic: Denies headache(s) Endocrine: Endocrine: Denies palpitations Exam Const: General: comfortable and no acute distress Resp: Effort & Inspection: normal respiratory effort Cardio: Rate: regular rate Rhythm: regular rhythm GI: GI Palp: Yes Soft to palpation, No Tenderness to palpation present (GI) and No Guarding due to palpation present (GI) Skin: Wounds: wounds noted Other: Incision c/d/i. No surrounding redness/warmth. No hematoma. Mild ecchymosis. No wound dehiscence Neuro: Cognition (Neuro): normal cognition Other: NV intact. Moves toes. Sensation intact to light touch. +ankle dorsiflexion/plantarflexion. Extrem: Right upper extremity: normal to inspection, full ROM and normal capillary refill Left upper extremity: normal to inspection, full ROM and normal capillary refill Right lower extremity: normal to inspection, full ROM (ROM limited due to recent surgical intervention ) and knee Details: tenderness (diffuse, mild ) and swelling (diffuse, mild ) Left lower extremity: normal to inspection Psych: Mental Status: mental status grossly normal Objective Data Vital Signs Vital Signs: Vital Signs - 24 hr 02/09/21 10:00 02/09/21 14:00 02/09/21 20:00 Temperature 36.5 C 36.5 C 36.1 C L Pulse Rate 65 69 72 Respiratory Rate 20 20 20 Blood Pressure 141/61 H 118/73 96/67 L Pulse Oximetry 99 96 100 02/10/21 05:29 Temperature 35.9 C L Pulse Rate 67 Respiratory Rate 18 Blood Pressure 111/51 L Pulse Oximetry 96 Intake/Output Intake/Output: Intake & Output 02/07/21 02/08/21 02/09/21 02/10/21 23:59 23:59 23:59 23:59 Intake Total 1100 1600 670 Output Total 450 400 Balance 650 1200 670 Meds/Results Medications: Active Medications Generic Name Dose Route Start Last Admin Trade Name Freq PRN Reason Stop Dose Admin Acetaminophen 1,000 mg 02/08/21 11:52 Acetaminophen 500 Mg Tablet PO PRN PRN Pain 1-3 Hydrocodone Bitart/Acetaminophen 1 tab 02/08/21 11:52 02/10/21 08:33 Hydrocodone/Acetaminophen (*Crx) 7.5-325 Mg Tablet PO 1 tab Q6H PRN Administration Pain Rated 7-10 Aspirin 325 mg 02/08/21 21:00 02/10/21 08:34 Aspirin 325 Mg Enteric Tablet PO 325 mg Q12HR SHAISTA Administration Atorvastatin Calcium 20 mg 02/08/21 21:00 02/09/21 21:28 Atorvastatin 20 Mg Tablet PO 20 mg HS SHAISTA Administration Diazepam 5 mg 02/08/21 11:52 Diazepam (*Crx) 5 Mg Tablet PO Q8H PRN Spasms Diphenhydramine HCl 25 mg 02/08/21 11:52 02/08/21 21:04 Diphenhydramine Hcl Inj 50 Mg/Ml Vial
[2021-02-10 20:00] VITALS: PULSE 87; RESP 18; O2SAT 99
[2021-02-10] MEDS: ATORVASTATIN 20 MG TABLET PO (20:06)
[2021-02-10 21:26] VITALS: BP 128/71; PULSE 87; RESP 18; TEMP 37.1; O2SAT 99
[2021-02-11] MEDS: ACETAMINOPHEN 500 MG TABLET 1000 MG PO (00:38)
[2021-02-11 00:54] VITALS: BP 114/50; PULSE 102; RESP 18; TEMP 36.7; O2SAT 97
[2021-02-11 05:50] VITALS: BP 103/53; PULSE 80; RESP 18; TEMP 36.7; O2SAT 97
[2021-02-11] MEDS: THERAPEUTIC MULTIVITAMINS/MINERALS TAB (*BKC) 1 TABLET PO (08:38)
[2021-02-11] MEDS: FAMOTIDINE 20 MG TABLET PO (08:38)
[2021-02-11] MEDS: ASPIRIN 325 MG ENTERIC TABLET PO (08:38)
[2021-02-11 08:40] VITALS: BP 96/58; PULSE 86; O2SAT 94
[2021-02-11] MEDS: DOCUSATE SODIUM 100 MG CAPSULE PO (08:41)
--- NOTE | 2021-02-16 13:03 | PM.DS ---
DS: Admitting Diagnosis Admitting Diagnosis Right Knee DJD DS: Discharge Diagnosis Discharge Diagnosis (1) S/P total knee arthroplasty: Qualifiers: Laterality: right Qualified Code(s): Z96.651 - Presence of right artificial knee joint Code(s): Z96.659 - Presence of unspecified artificial knee joint Status: Acute Assessment and Plan: Continue PT/OT. WBAT. Walker. HIGH FALL RISK. Pain control. Ice knee. Protect skin. SCDs. Incentive Spirometry. DVT prophylaxis. Monitor dressing. Change today. Dispo: Home with Home Health DS: Summary Hospital Course Reason for hospitalization: Right TKA Hospital Course: 75-year-old female admitted status post right total knee arthroplasty for postoperative medical care, pain control and mobilization with physical and occupational therapy. Patient is Ali had difficulties with nausea postoperatively but that quickly resolved. She was able to tolerate p.o. intake. Her pain was well controlled throughout her hospitalization. She did work slowly with PT and OT and initially was going to be discharged to acute rehab facility however it was determined the patient would be safe to be discharged home with on postop day 3. she will be discharged home with home health and follow-up in the outpatient orthopedic clinic in 3 weeks for re-evaluation. Prior to discharge. Patient was progressing back to her baseline. Stable prior to discharge. Status at Discharge Functional status at discharge: uses cane/walker Overall status at discharge: patient is progressing back to baseline Time Spent with Patient Time attestation: Total time spent providing and/or coordinating discharge services: Time spent: Less than 30 minutes Exam Const: General: comfortable and no acute distress Resp: Effort & Inspection: normal respiratory effort Cardio: Rate: regular rate Rhythm: regular rhythm GI: GI Palp: Yes Soft to palpation, No Tenderness to palpation present (GI) and No Guarding due to palpation present (GI) Skin: Wounds: wounds noted Other: Incision c/d/i. No surrounding redness/warmth. No hematoma. Mild ecchymosis. No wound dehiscence Neuro: Cognition (Neuro): normal cognition Other: NV intact. Moves toes. Sensation intact to light touch. +ankle dorsiflexion/plantarflexion. Extrem: Right upper extremity: normal to inspection, full ROM and normal capillary refill Left upper extremity: normal to inspection, full ROM and normal capillary refill Right lower extremity: normal to inspection, full ROM (ROM limited due to recent surgical intervention ) and knee Details: tenderness (diffuse, mild ) and swelling (diffuse, mild ) Left lower extremity: normal to inspection Psych: Mental Status: mental status grossly normal Discharge Plan Discharge Attending physician on discharge: Geovanny Lala Consulting providers: Doris Marie ; Michele Dunlap Discharging Clinician: Doris Marie Anticipated Discharge Date/Time: 02/10/21 15:00 Patient Disposition: Home Health Service Activity: may shower, no driving and follow weight bearing status Diet: as tolerated Wound Care Instructions: follow printed instructions Discharge Instructions: Per Shakila at [facility], pt to have CPM set at -5 degrees extension, and start Flexion at 80 degrees and may progress up to 110 degrees. Per Care Coordination, patient to discharge with [facility] ([phone]) for PT/OT and [facility]. Post Op Total Knee Replacement Instructions Dr. Geovanyn Lala [phone] ? Your dressing will be changed prior to your discharge. You will be sent home with one additional dressing to be changed in 5 days by the home health RN. Your carlos eduardo will be removed on the 14th day after surgery and steri-strips will be placed. ? You may shower with your dressing but do not submerge in a bath tub. ? Do not drive or operate machinery until you are released by Dr. Lala
== END 2021-02-11 12:45 | disposition home health service (06) ==
LOC: ANHSURGERY 13:04 → ANH2MED 13:04
PROVIDERS: Admitting Provider Orthopaedic Surgery; PCP Internal Medicine; Visit Provider Orthopaedic Surgery
PROC: (CPT 27447; principal; 2021-02-08 07:30)
DX: M17.0 Bilateral primary osteoarthritis of knee (principal); E78.5 Hyperlipidemia, unspecified; E16.2 Hypoglycemia, unspecified; M54.5 Low back pain; M25.561 Pain in right knee; M25.562 Pain in left knee; G89.29 Other chronic pain; E66.9 Obesity, unspecified; Z68.35 Body mass index [BMI] 35.0-35.9, adult; M85.89 Other specified disorders of bone density and structure, multiple sites; Z90.49 Acquired absence of other specified parts of digestive tract; Z96.82 Presence of neurostimulator; Z79.899 Other long term (current) drug therapy; Z79.811 Long term (current) use of aromatase inhibitors
CPT/HCPCS: 27447; 64447; 36415; 73560; 80048; 80307; 81001; 83036; 85025; 85610; 85730; 86850; 86900; 86901; 87081; 93005; 97110; 97116; 97161; 97165; 97530; 97535; A9270; C1713; C1776; G0378; J0171; J0690; J1100; J1200; J2270; J2405; J2704; J2795; J3010; J7030; J7120

== ENCOUNTER 2021-08-07 16:01 | Outpatient (CLI) | payer OTHER, SELFPAY ==
[2021-08-07 16:54] LABS: Hematocrit 46.8 % (37.0-47.0); Hemoglobin 15.1 g/dL (12.0-15.0); Mean Corpuscular HGB Conc 32.3 g/dl (32-36); Mean Corpuscular Hemoglobin 31.7 pg (26-34); Mean Corpuscular Volume 98.1 fl (80-100); Mean Platelet Volume 9.9 fl (7.4-10.4); Platelet Count Result 288 k/mm3 (150-375); Red Blood Count 4.77 M/mm3 (4.2-5.4); Red Cell Distribution Width 14.2 % (11.5-14.5); White Blood Count 6.4 K/mm3 (4.5-10.0)
[2021-08-07 17:10] LABS: Anion Gap 7 mmol/L (8-16); Blood Urea Nitrogen 15 mg/dL (7-17); Calcium 9.7 mg/dL (8.4-10.2); Carbon Dioxide 27 mmol/L (22-30); Chloride 99 mmol/L (98-107); Estimated Glomerular Filt Rate > 60; Glucose 91 mg/dL (65-110); Potassium 3.9 mmol/L (3.4-5.0); Sodium 133 mmol/L (137-145)
== END 2021-08-07 16:02 | disposition home or self-care (01) ==
LOC: ANHLAB 16:04
PROVIDERS: PCP Internal Medicine; Visit Provider Internal Medicine
DX: E78.5 Hyperlipidemia, unspecified (principal); I10 Essential (primary) hypertension
CPT/HCPCS: 36415; 80048; 85027

== ENCOUNTER → 2021-09-01 14:16 | Outpatient (CLI) | payer OTHER, SELFPAY ==
--- NOTE | ~2021-09-01 | CT_ITS ---
EXAMINATION: CT lumbar spine wo con DATE: 09/01/2021 14:34 INDICATION: Lumbar radiculopathy. TECHNIQUE: Computed tomography (CT) of the lumbar spine was performed without intravenous contrast. A utomated exposure control and iterative reconstruction technique were employed. The dose-length produ ct was 634.82 mGy-cm. COMPARISON: Lumbar spine MRI 04/06/2019 FINDINGS: There is a 19 degrees levoscoliosis of lumbar spine. There is 3 mm anterolisthesis of L5 on on T12, 3 mm retrolisthesis of T12 on L1 and L1 on L2, and 6 mm anterolisthesis of L4 on L5 and L5 o n S1. There are chronic compression fractures of T12 and L1 with 3/5 and 2/5 loss of height, respecti vely. There is a compression fracture of L2 with 2/5 loss of height, likely subacute. There is severe ly decreased disc height from T12-L1 through L3-L4, moderately decreased disc height at L4-L5, and se verely decreased disc height at L5-S1 with endplate remodeling. Epidural electrodes enter the central spinal canal at T11-T12. The topogram demonstrates the tips at T8-T9 and T7, respectively. The follo wing disc levels are specifically discussed: L1-L2: The disc does not extend beyond the endplate margin. There is moderate right and mild left fac et joint osteoarthritis. There is moderate right and mild left neural foraminal stenosis. There is mi ld central canal stenosis. L2-L3: The disc is bulging. There is severe right and mild left facet joint osteoarthritis. There is moderate right and mild left neural foraminal stenosis. There is mild central canal stenosis. L3-L4: The disc is bulging. There is severe bilateral facet joint osteoarthritis. There is mild bilat eral neural foraminal stenosis. There is mild central canal stenosis. L4-L5: The disc is bulging. There is severe bilateral facet joint osteoarthritis. There is moderate a nd mild left neural foraminal stenosis. There is mild central canal stenosis at the midline. There is severe stenosis of right lateral recess. L5-S1: The disc does not extend beyond the endplate margin. There is severe bilateral facet joint ost eoarthritis. There is mild right and moderate left neural foraminal stenosis. There is mild central c anal stenosis. IMPRESSION: 1. Severe lumbar spondylosis. 2. L2 compression fracture, likely subacute. 3. Lumbar levoscoliosis. Reviewed, dictated and finalized at location A. THERAPIST
== END ==
PROVIDERS: PCP Internal Medicine; Visit Provider Nurse Practitioner Adult Health
DX: M47.26 Other spondylosis with radiculopathy, lumbar region (principal)
CPT/HCPCS: 72131

== ENCOUNTER → 2021-09-18 11:43 | Outpatient (CLI) | payer OTHER, SELFPAY ==
--- NOTE | ~2021-09-18 | US_ITS ---
EXAMINATION: US pelvic complete w TV DATE: 09/18/2021 12:05 INDICATION: Postmenopausal bleeding Comparison:No prior studies for comparison. TECHNIQUE: Multiple transabdominal and endovaginal sonographic images of the pelvis performed. FINDINGS: The uterus measures 9.5 x 7.3 x 7.6 cm. There is a uterine fibroid measuring 7.2 x 6.4 x 6. 1 cm limiting evaluation of the endometrium. The ovaries are not visualized. There is no free fluid in the pelvis. There are no abnormal masses seen on either side. IMPRESSION: 1. Enlarged uterus containing a 7.2 cm uterine fibroid. Endometrium not adequately visualized due to fibroid changes. Reviewed, dictated and finalized at location B. IMPRESSION: 1. Enlarged uterus containing a 7.2 cm uterine fibroid. Endometrium not adequat panchito visualized due to fibroid changes.
== END ==
PROVIDERS: PCP Internal Medicine; Visit Provider Student in an Organized Health Care Education/Training Program
DX: N95.0 Postmenopausal bleeding (principal); N85.2 Hypertrophy of uterus; D25.9 Leiomyoma of uterus, unspecified
CPT/HCPCS: 76830; 76856

== ENCOUNTER 2021-09-25 08:34 | Outpatient (CLI) | payer OTHER, SELFPAY ==
--- NOTE | ~2021-09-25 | NM_ITS ---
EXAMINATION: NM bone scan whole body DATE: 09/25/2021 13:53 INDICATION: Age-related osteoporosis with current pathologic fracture TECHNIQUE: 25.0 mCi Tc-99m HDP was administered intravenously. Delayed whole-body scintigrams were o btained. COMPARISON: CT lumbar spine dated 09/01/2021 FINDINGS: There are scattered likely degenerative joint centered uptake at the bilateral shoulders, wrists, fee t and ankles and at the left knee and patellofemoral compartment of the right knee. Photopenic defect at the right knee consistent with a total knee arthroplasty. There is increased intramedullary uptak e along the mid to distal right femur and proximal half of the right tibia likely related to residual postoperative changes associated with the arthroplasty. Horizontal band of increased uptake associat ed with the previously noted recent-appearing L2 compression fracture. Additional foci increased upta ke at the right side of the lower thoracic spine in the region of the T9 costovertebral articulation and T10-T11 facet joint. Lumbar dextrocurvature with increased uptake associated with severe facet os teoarthritis throughout the mid to lower lumbar spine. IMPRESSION: 1. Increased uptake associated with a relatively recent-appearing L2 compression fracture. 2. Typical and relatively symmetric pattern of scattered bilateral likely degenerative joint centered uptake with change of prior right total knee arthroplasty. Reviewed, dictated and finalized at location A. IMPRESSION: 1. Increased uptake associated with a relatively recent-appearing L2 compressio n fracture. 2. Typical and relatively symmetric pattern of scattered bilateral likely degen erative joint centered uptake with change of prior right total knee arthroplast y.
== END 2021-09-25 08:35 | disposition home or self-care (01) ==
PROVIDERS: PCP Internal Medicine; Visit Provider Nurse Practitioner Adult Health
DX: M80.08XA Age-related osteoporosis with current pathological fracture, vertebra(e), initial encounter for fracture (principal); Z96.651 Presence of right artificial knee joint
CPT/HCPCS: 78306; A9561

== ENCOUNTER 2022-03-14 08:18 | Outpatient (CLI) | payer OTHER, SELFPAY ==
[2022-03-14 08:57] LABS: Alanine Aminotransferase 11 U/L (6-35); Albumin Level 3.9 g/dL (3.5-5.1); Alkaline Phosphatase 66 U/L (38-126); Anion Gap 6 mmol/L (8-16); Aspartate Amino Transferase 22 U/L (14-36); Bilirubin,Total 0.5 mg/dL (0.2-1.3); Blood Urea Nitrogen 19 mg/dL (7-17); Calcium 9.3 mg/dL (8.4-10.2); Carbon Dioxide 26 mmol/L (22-30); Chloride 104 mmol/L (98-107); Cholesterol 182 mg/dL (0-200); Estimated Glomerular Filt Rate > 60; Glucose 84 mg/dL (65-110); HDL Direct 66 mg/dL; Potassium 4.2 mmol/L (3.4-5.0); Sodium 136 mmol/L (137-145); Triglycerides 79 mg/dL (<150)
[2022-03-14 09:08] LABS: LDL Cholesterol Direct 71 mg/dL
[2022-03-14 09:43] LABS: Vitamin D 25 Hydroxy 40.2 ng/mL
== END 2022-03-14 08:19 | disposition home or self-care (01) ==
PROVIDERS: PCP Internal Medicine; Visit Provider Internal Medicine
DX: E78.5 Hyperlipidemia, unspecified (principal); E55.9 Vitamin D deficiency, unspecified; I10 Essential (primary) hypertension; Z79.899 Other long term (current) drug therapy
CPT/HCPCS: 36415; 80053; 80061; 82306

== ENCOUNTER 2022-05-22 13:22 | Outpatient (CLI) | payer OTHER, SELFPAY ==
--- NOTE | ~2022-05-22 | DEXA_ITS ---
Bone Density Report Name: NITA FIORE Age: 77 Sex: Female Ethnicity: White Date of : 1945 Indication: postmenopausal; screening for osteoporosis; height loss; Referring Provider: GADIEL, [facility] Study: Bone densitometry was performed. Exam Date: May 22, 2022 Accession number: [id number] Bone Density: Region BMD T-score Z-score Classification AP Spine(L1, L4) 1.003 -0.3 2.3 Normal Femoral Neck (Left) 0.678 -1.5 0.7 Osteopenia Total Hip (Left) 0.844 -0.8 1.2 Normal Femoral Neck (Right) 0.571 -2.5 -0.2 Osteoporosis Total Hip (Right) 0.806 -1.1 0.9 Osteopenia Total Hip Mean 0.825 -1.0 1.1 Normal World Health Organization criteria for BMD impression classify patients as: Normal (T-score at or above -1.0), Osteopenia (T-score between -1.0 and -2.5), or Osteoporosis (T-score at or below -2.5). 10-year Fracture Risk: FRAX not reported because: Some T-score for Spine Total or Hip Total or Femoral Neck at or below -2.5 Clinical Information Provided by Patient: Has used the following medications: Vitamin D, Calcium Patient maximum height was 58 Drinks caffeinated beverages Onset of menses at age 8 Number of children 2 Impression: The patient has osteoporosis, based on the Right Femoral Neck T-score. Discussion: INCREASED RISK OF FRACTURE. BONE DENSITY IS UNDESIRABLY LOW AT ONE OR MORE SKELETAL SITES, CONSISTENT WITH POSTMENOPAUSAL OSTEOPOROSIS. This patient's lowest T-score meets the World Health Organization's (WHO) criteria for osteoporosis at one or more sites (T-score -2.5 or below). In untreated patients, the risk of osteoporotic fracture increases approximately two-fold for each 1.0 SD decrease in T-score. Low bone density is not the only risk factor for fracture; also consider factors such as patient's age, frailty or poor health, risk of falling, risk of injury, previous osteoporotic fracture, family history of osteoporosis, cigarette smoking, low body weight, etc. Not everyone with low bone mineral density has osteoporosis; osteomalacia and other metabolic bone disorders should also be considered. Patients who have osteoporosis should be evaluated for specific diseases and conditions (secondary causes) that may cause or contribute to bone loss. The [place] [employer] Endocrinologists (AACE) and National Osteoporosis Foundation (NOF) recommend pharmacologic intervention for all postmenopausal women whose T-score is in this range. The patient should follow a healthful lifestyle (good nutrition with adequate calcium and vitamin D, and appropriate weight-bearing exercise). Follow-Up: Consider a repeat BMD and Vertebral Fracture Assessment (VFA) exam in 2 years or sooner if medically necessary, to reassess this patient's status. Reported by: PEREZ on 05/22/2022 1:
== END 2022-05-22 13:23 | disposition home or self-care (01) ==
PROVIDERS: PCP Internal Medicine; Visit Provider Internal Medicine
DX: M85.852 Other specified disorders of bone density and structure, left thigh (principal); M85.851 Other specified disorders of bone density and structure, right thigh; M81.0 Age-related osteoporosis without current pathological fracture
CPT/HCPCS: 77080

== ENCOUNTER 2022-09-17 09:51 | Outpatient (CLI) | payer OTHER, SELFPAY ==
[2022-09-17 10:57] LABS: Alanine Aminotransferase 18 U/L (6-35); Albumin Level 4.1 g/dL (3.5-5.1); Alkaline Phosphatase 63 U/L (38-126); Anion Gap 3 mmol/L (8-16); Aspartate Amino Transferase 25 U/L (14-36); Bilirubin,Total 0.5 mg/dL (0.2-1.3); Blood Urea Nitrogen 18 mg/dL (7-17); Calcium 8.9 mg/dL (8.4-10.2); Carbon Dioxide 29 mmol/L (22-30); Chloride 99 mmol/L (98-107); Cholesterol 166 mg/dL (0-200); Estimated Glomerular Filt Rate > 60; Glucose 82 mg/dL (65-110); HDL Direct 67 mg/dL; Potassium 4.1 mmol/L (3.4-5.0); Sodium 131 mmol/L (137-145); Triglycerides 78 mg/dL (<150)
[2022-09-17 11:08] LABS: LDL Cholesterol Direct 70 mg/dL
[2022-09-17 11:27] LABS: Vitamin D 25 Hydroxy 60.2 ng/mL
== END 2022-09-17 09:52 | disposition home or self-care (01) ==
PROVIDERS: PCP Nurse Practitioner; Visit Provider Nurse Practitioner
DX: E78.5 Hyperlipidemia, unspecified (principal); Z79.899 Other long term (current) drug therapy; E55.9 Vitamin D deficiency, unspecified; I10 Essential (primary) hypertension
CPT/HCPCS: 36415; 80053; 80061; 82306

== ENCOUNTER 2023-03-20 14:23 | Outpatient (CLI) | payer OTHER, SELFPAY ==
[2023-03-20 15:08] LABS: Alanine Aminotransferase 17 U/L (6-35); Albumin Level 3.7 g/dL (3.5-5.1); Alkaline Phosphatase 50 U/L (38-126); Anion Gap 2 mmol/L (8-16); Aspartate Amino Transferase 27 U/L (14-36); Bilirubin,Total 0.5 mg/dL (0.2-1.3); Blood Urea Nitrogen 18 mg/dL (7-17); Calcium 8.7 mg/dL (8.4-10.2); Carbon Dioxide 30 mmol/L (22-30); Chloride 100 mmol/L (98-107); Estimated Glomerular Filt Rate > 60; Glucose 89 mg/dL (65-110); Potassium 3.9 mmol/L (3.4-5.0); Sodium 132 mmol/L (137-145)
== END 2023-03-20 14:24 | disposition home or self-care (01) ==
PROVIDERS: PCP Nurse Practitioner; Visit Provider Nurse Practitioner
DX: E78.5 Hyperlipidemia, unspecified (principal)
CPT/HCPCS: 36415; 80053

== ENCOUNTER 2023-03-21 06:39 | Outpatient (CLI) | payer OTHER, SELFPAY ==
[2023-03-21 07:59] LABS: Cholesterol 157 mg/dL (0-200); HDL Direct 72 mg/dL; Triglycerides 52 mg/dL (<150)
[2023-03-21 08:11] LABS: LDL Cholesterol Direct 63 mg/dL
== END 2023-03-21 06:40 | disposition home or self-care (01) ==
PROVIDERS: PCP Nurse Practitioner; Visit Provider Nurse Practitioner
DX: E78.5 Hyperlipidemia, unspecified (principal)
CPT/HCPCS: 36415; 80061

== ENCOUNTER → 2023-08-09 11:13 | Outpatient (CLI) | payer OTHER, SELFPAY ==
--- NOTE | ~2023-08-09 | US_ITS ---
EXAMINATION: US pelvic complete w TV DATE: 08/09/2023 11:36 INDICATION: Postmenopausal bleeding TECHNIQUE: Multiple transabdominal and endovaginal sonographic images of the pelvis were obtained. COMPARISON: 09/18/2021 FINDINGS: The uterus measures 7.8 x 4.4 x 7.4 cm. There is a 6.8 x 6.4 x 6.2 cm uterine mass of the a ppearance of an intramural fibroid. The endometrial complex is obscured by uterine mass. No definite endometrial thickening is identified. The ovaries are not visualized however no adnexal abnormality i s seen. There is no free fluid in the pelvis. IMPRESSION: 1. Intramural uterine fibroid obscuring visualization of the endometrium. No definite endometrial abn ormality identified. Reviewed, dictated and finalized at location F. [employer] IMPRESSION: 1. Intramural uterine fibroid obscuring visualization of the endometrium. No de finite endometrial abnormality identified.
== END ==
PROVIDERS: PCP Obstetrics & Gynecology; Visit Provider Obstetrics & Gynecology
DX: D25.9 Leiomyoma of uterus, unspecified (principal); N95.0 Postmenopausal bleeding
CPT/HCPCS: 76830; 76856

== ENCOUNTER 2023-09-25 08:43 | Outpatient (CLI) | payer OTHER, SELFPAY ==
[2023-09-25 09:43] LABS: Anion Gap 1 mmol/L (8-16); Blood Urea Nitrogen 24 mg/dL (7-17); Calcium 9.4 mg/dL (8.4-10.2); Carbon Dioxide 30 mmol/L (22-30); Chloride 104 mmol/L (98-107); Estimated Glomerular Filt Rate > 60; Glucose 57 mg/dL (65-110); Potassium 4.6 mmol/L (3.4-5.0); Sodium 135 mmol/L (137-145)
== END 2023-09-25 08:44 | disposition home or self-care (01) ==
LOC: ANHSURGERY 08:51
PROVIDERS: Anesthesiology; PCP Family Medicine; Visit Provider Obstetrics & Gynecology
DX: Z01.818 Encounter for other preprocedural examination (principal); Z51.81 Encounter for therapeutic drug level monitoring
CPT/HCPCS: 36415; 80048

== ENCOUNTER 2023-10-02 00:58 | Day surgery (SDC) | payer OTHER, SELFPAY ==
[2023-09-24 15:30] VITALS: BMI 27.6
--- NOTE | 2023-09-24 15:50 | PC.NURSE ---
Report to the Outpatient Waiting Room, entrance under the green pavilion located off [facility], at time __6:30AM on date ___10/02/23____. Planned Procedure Time: ___8:30AM . Time changes happen often and if your time is changed the preop area will call you the afternoon before. - You and your visitor will be asked to self-screen and do not enter if you have any COVID symptoms. - A mask is optional within the hospital at this time. Patients may have clear liquids (water, carbonated beverages, clear teas, apple juice) until 3 hours prior to surgery with a maximum of 20 ounces. - No food from midnight until time of surgery. Take the following medications with a SIP of water the morning of surgery: ____NONE DO NOT STOP ANY OF YOUR OTHER PRESCRIPTION MEDICATIONS PRIOR TO SURGERY ?EXCEPT THE FOLLOWING Medications to discontinue per physician ___HOLD ALL VITAMINS/SUPPLEMENTS 3 DAYS PRE-OP PER ANESTHESIA Date to take last dose 09/28/23 Please no make-up, nail yemeni, hairspray, perfume, deodorant, or body powder the day of surgery. No jewelry (including any body piercings) or valuables the day of surgery, leave them at home. Please take a shower or bath the night before, or the morning of, surgery with an antibacterial soap. Wear comfortable, loose fitting clothing. - Jewelry must be removed prior to entering the operating room. Rings and piercings that are not removed may be cut off. - The hospital will not accept responsibility for valuables. - Please leave all valuables, including medications, at home the day of surgery. If you are going home after surgery, a licensed tanker truck driver must drive you home. - NO public transportation without another adult if you receive anesthesia. - We recommend that an adult stay with you for 24 hours following discharge. - We also recommend that you do not drive, make important decision, drink alcoholic beverages, or take any drugs that were not prescribed by your health care provider for at least 24 hours after your discharge time. Follow any additional instructions given to you from your surgeon. If you or anyone in your household have experienced Covid symptoms in the past week, please notify your surgeon or the nurse liaison at the phone number below for possible testing. Telephone instructions given to ____PATIENT and asked if any additional questions and then verbalized understanding. Patient advised to call surgeon office or pre surgery nurse liaison [phone] if any additional questions.
--- NOTE | 2023-09-25 10:03 | SUR.PREOP ---
received call from lab that pt had a critical glucose of 57, drawn this am. contacted pt by phone at 1000 to follow up. denies being diabetic/hypoglycemic. States she didn't eat breakfast this am prior to lab draw. Has eaten breakfast, and states feels fine.
--- NOTE | 2023-10-01 15:52 | PM.IMHP ---
H&P: HPI History of Present Illness Date/Time: 10/01/23 15:52 Chief Complaint: Postmenopausal spotting. Narrative: Patient with recent episode of postmenopausal spotting in June. Unable to assess endometrial thickness on ultrasound. She was recommended for endometrial sampling. She had a benign office endometrial biopsy two years ago for episode of postmenopausal bleeding. She has had several episodes of postmenopausal bleeding in the past with benign workup. She has a fibroid uterus. She declines hysterectomy. She agreed to dilation and curettage and hysteroscopy. Review of Systems Review of Systems: All systems reviewed & are unremarkable except as noted in HPI and below Constitutional: Constitutional: Reports no additional constitutional complaints Eyes: Eyes: Reports no additional eye complaints Cardiovascular: Cardiovascular: Reports no additional cardiovascular complaints Respiratory: Respiratory: Reports no additional respiratory complaints Gastrointestinal: Gastrointestinal: Reports no additional gastrointestinal complaints Genitourinary: Genitourinary: Reports no additional female genitourinary complaints and Reports as per HPI Integumentary/Breasts: Skin/Breast: Reports system reviewed and no additional complaints, except as docu Neurologic: Reports system reviewed and no additional complaints, except as documented Psychiatric: Psychiatric: Reports no additional psychiatric complaints Hematologic/Lymphatic: Hematologic/Lymphatic: Reports no additional hematologic/lymphatic complaints [facility] Past Medical History Medical History Arthritis Bilateral knee pain Claustrophobia Degenerative joint disease of knee Dyslipidemia Encounter for screening colonoscopy Hx of colonic polyps Hypoglycemia Microscopic hematuria Midline low back pain without sciatica Obesity (BMI 35.0-39.9 without comorbidity) Osteoarthritis Osteopenia of necks of both femurs Persistent hematuria Shortness of breath Stress Vaccine counseling Vertigo Weight gain Surgical History Surgical History History of carpal tunnel release History of cataract extraction 2019, [facility] History of cholecystectomy 1975 History of D&C 2017, Dr. Cortes History of foot surgery Bunionectomy S/P insertion of spinal cord stimulator 2019, [facility] S/P total knee arthroplasty Family History Family History Father Family history of malignant neoplasm of bone Other Arthritis Social History Social History Smoking status: Never smoker Second hand tobacco smoke exposure: No Additional smoking assessment comments: DENIES ANY FORM OF TOBACCO USE Alcohol intake: never Substance use: never Substance use type: does not use Lack of Transportation: No Lack of Food: Never True Current Housing: I Have Housing Concerned About Future Housing: No Difficulty Paying Gas/Electric Bills: No Difficulty Paying for Meds: No Currently Unemployed: No Education: Bachelor's Degree Difficulty w/ Childcare or Family Care: No Living arrangements: alone Occupation/Education: retired Gender identity (if verbalized by the patient): Female Spiritual care concerns: No Meds Home Medications and Allergies Home Medications Medication Instructions Recorded Confirmed Type biotin 1,000 mcg chewable tablet 1,000 mcg PO DAILY 01/26/21 09/25/23 History multivitamin,[id number] 1 tablet PO DAILY 01/26/21 09/25/23 History atorvastatin 20 mg tablet 20 mg PO DAILY #90 tabs 07/09/23 09/25/23 Rx ibuprofen 200 mg tablet 400 mg PO Q6H PRN Pain 09/24/23 09/25/23 History lisinopril 20 mg tablet 20 mg PO QAM 09/24/23 09/25/23 History alendronate 70 mg tablet See Rx Instructions .Route 09/25/23 Rx
--- NOTE | 2023-10-02 07:09 | WPDANESEPPF ---
Anes - Initial Pre Proc Eval Procedure: Operation Date: 10/02/23 08:30 Proposed Procedures p Hysteroscopy, Dilation and Curettage with Removal of Any Endometrial Lesions if Necessary - Bradly Miller MD Date/Time: 10/02/23 07:09 Surgeon: Bradly Miller MD Pre Op Diagnosis: post menopausal bleeding Patient Data Age: 78 Gender: F Height: 1.42 m Weight: 56 kg Allergies Allergy/AdvReac Type Severity Reaction Status Date / Time Penicillins Allergy Severe Hives Verified 09/25/23 08:20 vancomycin AdvReac Mild Rash and Verified 09/25/23 08:20 itching Home Medications Medication Instructions Recorded Confirmed Type biotin 1,000 mcg chewable tablet 1,000 mcg PO DAILY 01/26/21 09/25/23 History multivitamin,fw-xkhb-bnprbsst 1 tablet PO DAILY 01/26/21 09/25/23 History atorvastatin 20 mg tablet 20 mg PO DAILY #90 tabs 07/09/23 09/25/23 Rx ibuprofen 200 mg tablet 400 mg PO Q6H PRN Pain 09/24/23 09/25/23 History lisinopril 20 mg tablet 20 mg PO QAM 09/24/23 09/25/23 History alendronate 70 mg tablet See Rx Instructions .Route 09/25/23 Rx .COMPLEX #12 tabs hydrochlorothiazide 12.5 mg tablet See Rx Instructions .Route 10/01/23 Rx .COMPLEX #90 tabs Patient hx anesthesia problems: none Family hx anesthesia problems: none Results Review: All pre-operative results and documents have been reviewed as part of the pre-operative evaluation. [facility] Past Medical History Medical History Arthritis Bilateral knee pain Claustrophobia Degenerative joint disease of knee Dyslipidemia Encounter for screening colonoscopy Hx of colonic polyps Hypoglycemia Microscopic hematuria Midline low back pain without sciatica Obesity (BMI 35.0-39.9 without comorbidity) Osteoarthritis Osteopenia of necks of both femurs Persistent hematuria Shortness of breath Stress Vaccine counseling Vertigo Weight gain Surgical History Surgical History History of carpal tunnel release History of cataract extraction 2018, [facility] History of cholecystectomy 1975 History of D&C 2016, Dr. Gingrich History of foot surgery Bunionectomy S/P insertion of spinal cord stimulator 2019, [facility] S/P total knee arthroplasty Family History Family History Father Family history of malignant neoplasm of bone Other Arthritis Social History Social History Smoking status: Never smoker Second hand tobacco smoke exposure: No Additional smoking assessment comments: DENIES ANY FORM OF TOBACCO USE Alcohol intake: never Substance use: never Substance use type: does not use Lack of Transportation: No Lack of Food: Never True Current Housing: I Have Housing Concerned About Future Housing: No Difficulty Paying Gas/Electric Bills: No Difficulty Paying for Meds: No Currently Unemployed: No Education: Bachelor's Degree Difficulty w/ Childcare or Family Care: No Living arrangements: alone Occupation/Education: retired Gender identity (if verbalized by the patient): Female Spiritual care concerns: No Anes - Eval Final PreProcedure Day of Procedure 10/02/23 07:09 Patient weight: overweight Heart: regular rate and rhythm Lungs: clear to auscultation Airway: Mallampati scale class II Neurological: alert and oriented Last oral intake: >/= 8 hours ASA classification: III Emergent: no Anesthetic plan: proceed Anesthesia type and monitoring: general GIVS and standard monitoring Results Review: All pre-operative results and documents have been reviewed as part of the pre-operative evaluation. Informed Consent: The patient's anesthetic plan and its attendant risks and benefits were discussed with the patient/family/POA. Questions were solicited and answers provided
--- NOTE | 2023-10-02 07:25 | WPDHPUPDATE1 ---
History and Physical Update Update Date/Time: 10/02/23 07:25 History and Physical has been reviewed, including an updated exam of the patient. There are NO changes in the patient's condition. Risks, benefits, and alternatives have been discussed and questions answered. Patient agrees to proceed with procedure.
[2023-10-02] MEDS: LACTATED RINGERS 1,000 ML 30 ML IV CONT (08:00)
[2023-10-02] MEDS: ACETAMINOPHEN 500 MG TABLET 1000 MG PO (08:09)
[2023-10-02 08:11] VITALS: BP 119/65; PULSE 111; RESP 16; TEMP 36.3; O2SAT 98
[2023-10-02] MEDS: ceFAZolin 2 GM/D5W 50 ML 2 GM/50 ML BAG IVPB (08:37)
[2023-10-02] MEDS: LIDOCAINE 1% BUFFERED WITH 8.4% SODIUM BICARB 1 ML SYRINGE 10 ML INFILTRATE (08:51)
[2023-10-02 09:09] VITALS: BP 97/74; PULSE 92; RESP 16; O2SAT 95
--- NOTE | 2023-10-02 09:16 | W.PM.PROC2 ---
Procedure Note - Detailed Date of Procedure 10/02/23 Pre-op Diagnosis post menopausal bleeding Fibroid uterus Post-op Diagnosis Same Procedure Performed Diagnostic hysteroscopy with curettage and shavings of endometrial lesion. Surgeon Bradly Miller MD Anesthesia MAC and Local Indications Postmenopausal bleeding. Findings Uterus sound to 8 cm the cavity was atrophic appearing mass effect from the fibroid which decreased the size of the cavity. There were some areas at the fundus which appeared to be calcified fibroid and the area was biopsied. During the biopsy with the of [place] a there was some an area at the calcified fibroid appearing lesion which was poked through with the biopsy, did not go through full thickness. No active bleeding from it. Unable to determine if this was partial myometrial or calcified fibroid. Hemostasis noted. Description of Procedure After informed consent was obtained patient was taken to operative adequate IV sedation was administered she was placed in high lithotomy position and prepped and draped in sterile fashion attention was turned to the vagina speculum inserted. Single-tooth tenaculum placed on anterior lip of the cervix. She was injected at the cervical vaginal interface with 1% plain lidocaine at 258 and 10 position total of 10 cc. The uterus was sounded to 8 cm the hysteroscope was inserted there was noted to be mass effect on most of the left side of the uterus. There was an area at her fundus which appeared to be firm and appeared to have a calcified fibroid appearance. This area was biopsied with the of [place] and at the time it did feel like a calcified fibroid unable to remove all of it because it was mostly imbedded below the myometrium but did obtain tissue from it for tissue diagnosis. During the biopsy did poke through this area. It was further evaluated could not see any full-thickness type of perforation it appeared to be similar tissue consistent with calcified fibroid at this possible perforation site. Also a small area beneath it which was removed with the Aveta instrument. A curettage was performed minimal tissue. Hemostasis was noted at os and tenaculum site. Distending fluid discrepancy 350cc. Estimated Blood Loss 5 Drains No Packing No Pathology Yes (scant curettings and shavings) Complications No immediate complications Condition Stable Disposition Same day [facility] Billing Surgery - Charge Forward: Surgery Billing
[2023-10-02 09:35] VITALS: BP 99/72; PULSE 98; O2SAT 98
[2023-10-02 09:55] VITALS: BP 108/75; PULSE 47
== END 2023-10-02 10:02 | disposition home or self-care (01) ==
PROVIDERS: PCP Family Medicine; Visit Provider Obstetrics & Gynecology
PROC: 0U5B8ZZ Destruction of Endometrium, Via Natural or Artificial Opening Endoscopic (ICD-10-PCS; CPT 58563; principal; 2023-10-02 08:30)
DX: N95.0 Postmenopausal bleeding (principal); D25.9 Leiomyoma of uterus, unspecified; E78.5 Hyperlipidemia, unspecified
CPT/HCPCS: 58558; 36415; 80048; 88305; A9270; J0690; J2405; J2704; J3010; J7120

== ENCOUNTER 2023-10-10 08:40 | Outpatient (CLI) | payer OTHER, SELFPAY ==
[2023-10-10 08:54] LABS: Basophils Absolute Auto 0.1 K/mm3 (0.0-0.1); Eosinophils Absolute Auto 0.1 K/mm3 (0-0.3); Eosinophils Percent Auto 1.6 % (0-4.4); Hematocrit 44.7 % (37.0-47.0); Hemoglobin 15.1 g/dL (12.0-15.0); Immature Granulocyte Absolute 0.03 K/mm3 (0.00-0.031); Immature Granulocyte Percent A 0.6 % (0-0.5); Lymphocytes Absolute Auto 1.03 K/mm3 (0.9-3.2); Lymphocytes Percent Auto 21.2 % (18.3-44.2); Mean Corpuscular HGB Conc 33.8 g/dl (32-36); Mean Corpuscular Hemoglobin 33.5 pg (26-34); Mean Corpuscular Volume 99.1 fl (80-100); Mean Platelet Volume 9.7 fl (7.4-10.4); Monocytes Absolute Auto 0.6 K/mm3 (0.1-0.6); Monocytes Percent Auto 12.3 % (2.6-8.5); Neutrophils Absolute Auto 3.1 K/mm3 (1.3-6.7); Neutrophils Percent Auto 63.3 % (45.5-73.1); Platelet Count Result 232 k/mm3 (150-375); Red Blood Count 4.51 M/mm3 (4.2-5.4); Red Cell Distribution Width 13.9 % (11.5-14.5); White Blood Count 4.9 K/mm3 (4.5-10.0)
[2023-10-10 09:02] LABS: Alanine Aminotransferase 16 U/L (6-35); Albumin Level 3.9 g/dL (3.5-5.1); Alkaline Phosphatase 60 U/L (38-126); Anion Gap 2 mmol/L (4-12); Aspartate Amino Transferase 25 U/L (14-36); Bilirubin,Total 0.6 mg/dL (0.2-1.3); Blood Urea Nitrogen 16 mg/dL (7-17); Calcium 9.2 mg/dL (8.4-10.2); Carbon Dioxide 30 mmol/L (22-30); Chloride 100 mmol/L (98-107); Estimated Glomerular Filt Rate > 60; Glucose 89 mg/dL (65-110); Potassium 4.1 mmol/L (3.4-5.0); Sodium 132 mmol/L (137-145)
== END 2023-10-10 08:41 | disposition home or self-care (01) ==
LOC: ANHLAB 08:41
PROVIDERS: PCP Family Medicine; Visit Provider Family Medicine
DX: Z00.00 Encounter for general adult medical examination without abnormal findings (principal); E78.5 Hyperlipidemia, unspecified
CPT/HCPCS: 36415; 80053; 85025

== ENCOUNTER 2023-12-31 00:19 | Day surgery (SDC) | payer OTHER, SELFPAY ==
[2023-12-16 08:52] VITALS: BMI 27.6
[2023-12-31 08:31] VITALS: BP 133/64; PULSE 52; RESP 20; TEMP 36.4; O2SAT 100
[2023-12-31] MEDS: LACTATED RINGERS 1,000 ML 150 ML IV CONT (08:43)
--- NOTE | 2023-12-31 08:59 | PM.HPGS ---
History of Present Illness History of Present Illness Consent: Risks, benefits, and alternatives have been discussed and questions answered. Patient agrees to proceed with procedure. Chief complaint: Pers. hx. colon polyps Narrative: Lyly Pham is a 78 year old female with colon polyps in 2020 Review of Systems Review of Systems: All systems reviewed & are unremarkable except as noted in HPI and below PMFSH Past Medical History Medical History (Updated 12/31/23 @ 09:00 by Austyn Dotson MD) Arthritis Bilateral knee pain Claustrophobia Colon polyp Degenerative joint disease of knee Dyslipidemia Encounter for screening colonoscopy Hx of colonic polyps Hypoglycemia Microscopic hematuria Midline low back pain without sciatica Obesity (BMI 35.0-39.9 without comorbidity) Osteoarthritis Osteopenia of necks of both femurs Persistent hematuria Shortness of breath Stress Vaccine counseling Vertigo Weight gain Surgical History Surgical History History of carpal tunnel release History of cataract extraction 2018, [facility] History of cholecystectomy 1975 History of D&C 2016, Dr. Cortes History of foot surgery Bunionectomy S/P insertion of spinal cord stimulator 2019, [facility] S/P total knee arthroplasty Family History Family History Father Family history of malignant neoplasm of bone Other Arthritis Social History Social History Smoking status: Never smoker Second hand tobacco smoke exposure: No Additional smoking assessment comments: DENIES ANY FORM OF TOBACCO USE Alcohol intake: never Substance use: never Substance use type: does not use Lack of Transportation: No Lack of Food: Never True Current Housing: I Have Housing Concerned About Future Housing: No Difficulty Paying Gas/Electric Bills: No Difficulty Paying for Meds: No Currently Unemployed: No Education: Bachelor's Degree Difficulty w/ Childcare or Family Care: No Living arrangements: alone Occupation/Education: retired Gender identity (if verbalized by the patient): Female Spiritual care concerns: No Meds Home Medications and Allergies Home Medications Medication Instructions Recorded Confirmed Type biotin 1,000 mcg chewable tablet 1,000 mcg PO DAILY 01/26/21 12/16/23 History multivitamin,vy-toml-xxpqbaig 1 tablet PO DAILY 01/26/21 12/16/23 History atorvastatin 20 mg tablet 20 mg PO DAILY #90 tabs 07/09/23 12/16/23 Rx ibuprofen 200 mg tablet 400 mg PO Q6H PRN Pain 09/24/23 12/16/23 History lisinopril 20 mg tablet 20 mg PO QAM 09/24/23 12/31/23 History alendronate 70 mg tablet See Rx Instructions .Route 09/25/23 12/16/23 Rx .COMPLEX #12 tabs Allergies Allergy/AdvReac Type Severity Reaction Status Date / Time Penicillins Allergy Severe Hives Verified 12/31/23 08:29 vancomycin AdvReac Mild Rash and Verified 12/31/23 08:29 itching Vital Signs Vital Signs - 24 hr 12/31/23 08:31 Temperature 97.6 F Pulse Rate 52 L Respiratory Rate 20 Blood Pressure 133/64 Pulse Oximetry 100 Oxygen Delivery Room Air Exam Const: General: comfortable and no acute distress HENMT: Face/Nose/Sinus: Normal nares present Eyes: General: appearance normal, both eyes and all related structures Neck: Neck: no JVD Resp: Auscultation: clear to auscultation bilaterally Cardio: Rate: regular rate Rhythm: regular rhythm GI: Inspection: non-distended GI Palp: Yes Soft to palpation Skin: General skin exam: normal color Neuro: General: gait normal Speech: normal speech Extrem: General: normal to inspection Psych: Mental Status: mental status grossly normal Assessment and Plan Assessment and plan (1) Colon polyp: Code(s): K63.5 - Polyp of colon Status: Acute Asses
--- NOTE | 2023-12-31 09:10 | WPDANESEPPF ---
Anes - Initial Pre Proc Eval Procedure: Operation Date: 12/31/23 09:30 Proposed Procedures p Colonoscopy - Austyn Dotson MD Date/Time: 12/31/23 09:10 Surgeon: Austyn Dotson MD Pre Op Diagnosis: Pers. hx. colon polyps Patient Data Age: 78 Gender: F Height: 1.42 m Weight: 55.3 kg Last Vital Signs Temp 36.4 C 12/31/23 08:31 Pulse 52 L 12/31/23 08:31 Resp 20 12/31/23 08:31 BP 133/64 12/31/23 08:31 Pulse Ox 100 12/31/23 08:31 O2 Del Method Room Air 12/31/23 08:31 Allergies Allergy/AdvReac Type Severity Reaction Status Date / Time Penicillins Allergy Severe Hives Verified 12/31/23 08:29 vancomycin AdvReac Mild Rash and Verified 12/31/23 08:29 itching Home Medications Medication Instructions Recorded Confirmed Type biotin 1,000 mcg chewable tablet 1,000 mcg PO DAILY 01/26/21 12/16/23 History multivitamin,xs-xcas-rfadiusl 1 tablet PO DAILY 01/26/21 12/16/23 History atorvastatin 20 mg tablet 20 mg PO DAILY #90 tabs 07/09/23 12/16/23 Rx ibuprofen 200 mg tablet 400 mg PO Q6H PRN Pain 09/24/23 12/16/23 History lisinopril 20 mg tablet 20 mg PO QAM 09/24/23 12/31/23 History alendronate 70 mg tablet See Rx Instructions .Route 09/25/23 12/16/23 Rx .COMPLEX #12 tabs Patient hx anesthesia problems: none Family hx anesthesia problems: none Results Review: All pre-operative results and documents have been reviewed as part of the pre-operative evaluation. [facility] Past Medical History Medical History Arthritis Bilateral knee pain Claustrophobia Colon polyp Degenerative joint disease of knee Dyslipidemia Encounter for screening colonoscopy Hx of colonic polyps Hypoglycemia Microscopic hematuria Midline low back pain without sciatica Obesity (BMI 35.0-39.9 without comorbidity) Osteoarthritis Osteopenia of necks of both femurs Persistent hematuria Shortness of breath Stress Vaccine counseling Vertigo Weight gain Surgical History Surgical History History of carpal tunnel release History of cataract extraction 2019, [facility] History of cholecystectomy 1975 History of D&C 2017, Dr. Cortes History of foot surgery Bunionectomy S/P insertion of spinal cord stimulator 2019, [facility] S/P total knee arthroplasty Family History Family History Father Family history of malignant neoplasm of bone Other Arthritis Social History Social History Smoking status: Never smoker Second hand tobacco smoke exposure: No Additional smoking assessment comments: DENIES ANY FORM OF TOBACCO USE Alcohol intake: never Substance use: never Substance use type: does not use Lack of Transportation: No Lack of Food: Never True Current Housing: I Have Housing Concerned About Future Housing: No Difficulty Paying Gas/Electric Bills: No Difficulty Paying for Meds: No Currently Unemployed: No Education: Bachelor's Degree Difficulty w/ Childcare or Family Care: No Living arrangements: alone Occupation/Education: retired Gender identity (if verbalized by the patient): Female Spiritual care concerns: No Anes - Eval Final PreProcedure Day of Procedure 12/31/23 09:10 Patient weight: normal Heart: regular rate and rhythm Lungs: clear to auscultation Airway: Mallampati scale class II Neurological: alert and oriented Last oral intake: >/= 8 hours ASA classification: III Emergent: no Anesthetic plan: proceed Anesthesia type and monitoring: general GIVS and standard monitoring Results Review: All pre-operative results and documents have been reviewed as part of the pre-operative evaluation. Informed Consent: The patient's anesthetic plan and its attendant risks and benefits were discussed wit
[2023-12-31 09:55] VITALS: BP 99/54; PULSE 59; RESP 17; O2SAT 98
[2023-12-31 10:05] VITALS: BP 105/60; PULSE 69; RESP 14; O2SAT 99
[2023-12-31 10:15] VITALS: BP 134/77; PULSE 63; RESP 20; O2SAT 99
== END 2023-12-31 10:15 | disposition home or self-care (01) ==
PROVIDERS: PCP Family Medicine; Visit Provider Internal Medicine Gastroenterology
PROC: 0DJD8ZZ Inspection of Lower Intestinal Tract, Via Natural or Artificial Opening Endoscopic (ICD-10-PCS; CPT 45378; principal; 2023-12-31 09:30)
DX: Z12.11 Encounter for screening for malignant neoplasm of colon (principal); D12.0 Benign neoplasm of cecum; K57.30 Diverticulosis of large intestine without perforation or abscess without bleeding; E78.5 Hyperlipidemia, unspecified
CPT/HCPCS: 45380; 88305; J1596; J2001; J2704; J7120

== ENCOUNTER 2024-04-10 09:51 | Outpatient (CLI) | payer OTHER, SELFPAY ==
[2024-04-10 10:35] LABS: Hematocrit 45.5 % (37.0-47.0); Hemoglobin 14.6 g/dL (12.0-15.0); Mean Corpuscular HGB Conc 32.1 g/dl (32-36); Mean Corpuscular Hemoglobin 32.1 pg (26-34); Mean Platelet Volume 9.9 fl (7.4-10.4); Platelet Count Result 242 k/mm3 (150-375); Red Blood Count 4.55 M/mm3 (4.2-5.4); Red Cell Distribution Width 13.8 % (11.5-14.5)
[2024-04-10 10:49] LABS: Alanine Aminotransferase 14 U/L (6-35); Albumin Level 3.9 g/dL (3.5-5.1); Alkaline Phosphatase 55 U/L (38-126); Anion Gap 5 mmol/L (4-12); Aspartate Amino Transferase 27 U/L (14-36); Bilirubin,Total 0.7 mg/dL (0.2-1.3); Blood Urea Nitrogen 16 mg/dL (7-17); Calcium 9.3 mg/dL (8.4-10.2); Carbon Dioxide 28 mmol/L (22-30); Chloride 102 mmol/L (98-107); Cholesterol 169 mg/dL (0-200); Estimated Glomerular Filt Rate > 60; Glucose 83 mg/dL (65-110); HDL Direct 82 mg/dL; Potassium 4.5 mmol/L (3.4-5.0); Sodium 135 mmol/L (137-145); Triglycerides 59 mg/dL (<150)
[2024-04-10 11:00] LABS: LDL Cholesterol Direct 59 mg/dL
[2024-04-10 11:07] LABS: Vitamin D 25 Hydroxy 49.5 ng/mL
== END 2024-04-10 09:52 | disposition home or self-care (01) ==
LOC: ANHLAB 09:57
PROVIDERS: PCP Family Medicine; Visit Provider Family Medicine
DX: E78.5 Hyperlipidemia, unspecified (principal); E55.9 Vitamin D deficiency, unspecified; E66.9 Obesity, unspecified; R42 Dizziness and giddiness
CPT/HCPCS: 36415; 80053; 80061; 82306; 85027

== ENCOUNTER 2024-08-12 11:33 | Outpatient (CLI) | payer OTHER, SELFPAY ==
--- NOTE | ~2024-08-12 | XR_ITS ---
HISTORY: M53.3 - Sacrococcygeal disorders, not elsewhere classified COMPARISON: None TECHNIQUE: 2 views of the SI joints were obtained along with a frontal view of the sacrum FINDINGS: Diffuse bony demineralization is noted. Significant degenerative disease within the visualized portion of the lumbar spine. Superior lateral joint space narrowing and sclerosis is identified within the bilateral femoral aceta bular joint spaces. A furrier designer for a spinal pain device projects over the vertebral body of L5, to the right of midline. Degenerative disease is identified within the bilateral sacroiliac joint spaces with narrowing and sc lerosis. Degenerative disease is also noted within the pubic symphysis with osteophyte formation and joint spa ce narrowing. IMPRESSION: Significant degenerative disease, without acute fracture, as detailed above. Reviewed, dictated and finalized at location A. PHONE RECORDER
--- NOTE | ~2024-08-12 | XR_ITS ---
AP and lateral views of the left hip Clinical history: Pain Findings: No acute fracture or dislocation is seen. Osseous alignment is anatomic. Left hip joint dem onstrates mild degenerative change. Soft tissues are unremarkable. Impression: Mild left hip joint degenerative change. Reviewed, dictated and finalized at [facility]. TY DIRECTOR OF PUBLIC WORKS Impression: Mild left hip joint degenerative change.
--- OUTSIDE RECORDS SUMMARY | 2024-08-12 13:09 | XMS_ITS | Clinical Summary ---
Author Organization [facility] Address [address] [place] [address] Care Team Providers Care Supervisor Personnel Clerks Name Role Phone Edu Hills MD Primary Care Provider [phone] Encounters Date Type Department Care Team Description 05/28/2024 9:17 AM BUILDING DRAFTER - 05/28/2024 11:59 PM BUILDING DRAFTER Hospital Encounter [facility] [address] [place] [address] Edu Hills MD Discharge Disposition: Home or Self Care (Routine Discharge) 05/28/2024 Travel from Last 3 Months Social History Tobacco Use Types Packs/Day Years Used Date Smoking Tobacco: Never Assessed Comments Unknown Sex and Gender Information Value Date Recorded Sex Assigned at Not on file Legal Sex Female 5:00 PM CDT Gender Identity Not on file Sexual Orientation Not on file Plan of Treatment Health Maintenance Due Date Last Done Comments DTaP, Tdap and Td Vaccines (1 - Tdap) 1962 Annual Medicare Wellness Visit 2008 Zoster Vaccines (2 of 2) 12/03/2023 10/08/2023 RSV Immunization or 60+ Years Completed 04/01/2023 Pneumococcal Vaccine: 65+ Years Completed 10/08/2023 COVID-19 Vaccine Completed 04/15/2024, , 04/06/2022, Additional history exists Influenza Adult Completed 04/15/2024, 03/09, 04/06/2022, Additional history exists Dexa Scan (General) Completed 05/28/2024 Meningococcal B Vaccine Aged Out No l onger eligible based on patient's age to complete this topic Meningococcal Vaccine Aged Out No kathia rupa eligible based on patient's age to complete this topic RSV Immunizations Under 20 Months Aged Out No longer eligible based on patient's age to complete this topic Procedures Procedure Name Priority Date/Time Associated Diagnosis Comments BONE DENSITY/DEXA Routine 05/28/2024 9:5 3 AM BUILDING DRAFTER Other specified disorders of bone density and structure, right thigh Other specified disorders of bone density and structure, left thigh from Last 3 Months Results * BONE DENSITY/DEXA (05/28/2024 9:53 AM BUILDING DRAFTER) Anatomical Region Laterality Modality Bone Mammography 05/28/2024 10:1 1 AM BUILDING DRAFTER Impressions 05/28/2024 10:11 AM BUILDING DRAFTER IMPRESSION: WHO Classification: Osteoporosis. RECOMMENDATIONS: All patients should ensure an adequate intake of dietary calcium and vitamin D. The NOF recommend adults under the age of 50 need 1000 mg of calcium and 400-800 IU of vitamin D daily. Effective therapy for the prevention and treatment of osteoporosis include bisphosphonates. FOLLOW-UP: People with diagnosed cases of osteoporosis or at high risk for fracture should have regular bone mineral density test. For patients eligible for Medicare, routine testing is allowed once every 2 years. Testing frequency can be increased to one year for patients who have rapidly progressing disease, those who are receiving or discontinuing medical therapy to restore bone mass, or have additional risk factors. Ordered By: EDU HILLS Interpreted By: Freddie Agrawal, 05/28/2024 10:11 AM Narrative 05/28/2024 10:11 AM BUILDING DRAFTER [facility] [place] [address] EXAMINATION: BONE DENSITY/DEXA INDICATIONS: Other specified disorders of bone density and structure, right thigh, Other specified disorders of bone density and structure, left thigh COMPARISON: None TECHNIQUE: DEXA bone mineral density evaluation was performed in the AP projection over the lumbar spine and both hips utilizing standard imaging techniques. FINDINGS: Vertebroplasty changes at L2. The BMD measured at the AP spine L3-L4 is 0.639 g/cm? with a T-score of -4.2. The BMD measured at the left femoral neck is 0.636 g/cm? with a T-score of -1.9. The BMD measured at the left hip is 0.862 g/cm? with a T-score of -0.7. The BMD measured at the right femoral neck is 0.619 g/cm? with a T-score of - 2.1. The BMD measured at the right hip is 0.889 g/cm? with a T-score of -0.4. FRAX 10-year fracture risk: Major Osteoporotic Fracture: 38% Hip Fracture: 24% Procedure Note Freddie Agrawal MD - 05/28/2024 [facility] [place] [address] EXAMINATION: BONE DENSITY/DEXA INDICATIONS: Other specified disorders of bone density and structure,right thigh, Other specified disorders of bone density and structure, leftthigh COMPARISON: None TECHNIQUE: DEXA bone mineral density evaluation was performed in the APprojection over the lumbar spine and both hips utilizing standard imagingtechniques. FINDINGS: Vertebroplasty changes at L2. The BMD measured at the AP spine L3-L4 is 0.639 g/cm? with a T-score of-4.2. The BMD measured at the left femoral neck is 0.636 g/cm? with a T-score of-1.9. The BMD measured at the left hip is 0.862 g/cm? with a T-score of -0.7. The BMD measured at the right femoral neck is 0.619 g/cm? with a T-scoreof -2.1. The BMD measured at the right hip is 0.889 g/cm? with a T-score of -0.4. FRAX 10-year fracture risk: Major Osteoporotic Fracture: 38% Hip Fracture: 24% IMPRESSION: WHO Classification: Osteoporosis. RECOMMENDATIONS: All patients should ensure an adequate intake of dietary calcium andvitamin D. The NOF recommend adults under the age of 50 need 1000 mg ofcalcium and 400-800 IU of vitamin D daily. Effective therapy for theprevention and treatment of osteoporosis include bisphosphonates. FOLLOW-UP: People with diagnosed cases of osteoporosis or at high risk for fractureshould have regular bone mineral density test. For patients eligible forMedicare, routine testing is allowed once every 2 years. Testing frequencycan be increased to one year for patients who have rapidly progressingdisease, those who are receiving or discontinuing medical therapy torestore bone mass, or have additional risk factors. Ordered By: EDU HILLS Interpreted By: Freddie Agrawal, 05/28/2024 10:11 AM us Edu Hills MD DEXA Final Result from Last 3 Months Insurance [employer] Care Teams Supervisor Personnel Clerks Relationship Specialty Start Date End Date Edu Hills MD [address] [place] [address] PCP - General FAMILY PRACTICE 05/26/24
== END 2024-08-12 11:34 | disposition home or self-care (01) ==
PROVIDERS: PCP Family Medicine; Visit Provider Nurse Practitioner Family
DX: M16.12 Unilateral primary osteoarthritis, left hip (principal); M53.3 Sacrococcygeal disorders, not elsewhere classified
CPT/HCPCS: 72202; 73502

== ENCOUNTER 2024-10-03 11:15 | Outpatient (CLI) | payer OTHER, SELFPAY ==
--- NOTE | ~2024-10-03 | US_ITS ---
EXAMINATION: US pelvic complete w TV INDICATION: Postmenopausal bleeding Comparison:Ultrasound dated 08/09/2023 TECHNIQUE: Multiple transabdominal and endovaginal sonographic images of the pelvis performed. FINDINGS: The uterus measures 9.6 x 8.8 x 8.2 cm. There is an enlarging intramural mass measuring 7.7 x 6.8 x 6.3 cm compared with 6.8 x 6.47 x 6.2 cm on prior examination, consistent with intramural fi broid. This mass obscures the endometrium. The ovaries are not visualized, likely atrophic. There is no free fluid in the pelvis. There are no abnormal masses seen on either side. IMPRESSION: 1. Enlarging intramural mass of the uterus measuring up to 7.7 cm, compatible with fibroid. Endometri um is obscured by this mass. Reviewed, dictated and finalized at location A. IMPRESSION: 1. Enlarging intramural mass of the uterus measuring up to 7.7 cm, compatible w ith fibroid. Endometrium is obscured by this mass.
== END 2024-10-03 11:16 | disposition home or self-care (01) ==
LOC: MICIMG 11:15
PROVIDERS: PCP Family Medicine; Visit Provider Obstetrics & Gynecology
DX: N95.0 Postmenopausal bleeding (principal); D25.9 Leiomyoma of uterus, unspecified
CPT/HCPCS: 76830; 76856

== ENCOUNTER 2024-10-08 10:11 | Outpatient (NON) | payer OTHER, SELFPAY ==
--- OUTSIDE RECORDS SUMMARY | 2024-10-09 10:35 | XMS_ITS | Clinical Summary ---
Author Organization [facility] Address [address] [place] [address] Care Team Providers Care Icer Machine Operator Name Role Phone Edu Hills MD Primary Care Provider [phone] Social History Tobacco Use Types Packs/Day Years [...] Zoster Vaccines (2 of 2) 12/03/2023 10/08/2023 COVID-19 Vaccine ( season) 2024 04/15/2024, 04/01/2023, 04/06/2022, Additional history exists RSV Immunization or 60+ Years Completed 04/01/2023 Pneumococcal Vaccine: 65+ Years Completed 10/08/2023 Influenza Adult Completed 04/15/2024, 03/09, 04/06/2022, Additional [...] BONE DENSITY/DEXA Routine 05/28/2024 9:5 3 AM FOOD SERVICE TECHNICIAN Other specified disorders of bone density and structure, right thigh Other specified disorders of bone density and structure, left thigh from Last 3 Months or Most Recently Relevant to Health Maintenance Results * BONE DENSITY/DEXA (05/28/2024 9:53 AM FOOD SERVICE TECHNICIAN) Anatomical Region Laterality Modality Bone Mammography 05/28/2024 10:1 1 AM FOOD SERVICE TECHNICIAN Impressions 05/28/2024 10:11 AM FOOD SERVICE TECHNICIAN IMPRESSION: WHO Classification: Osteoporosis. RECOMMENDATIONS: All patients [...] 05/28/2024 10:11 AM Narrative 05/28/2024 10:11 AM FOOD SERVICE TECHNICIAN [facility] [address] [place] [address] EXAMINATION: BONE DENSITY/DEXA INDICATIONS: Other specified disorders [...] Procedure Note Freddie Agrawal MD - 05/28/[address] [facility] [address] [place] [address] EXAMINATION: BONE DENSITY/DEXA INDICATIONS: Other specified disorders [...] DEXA Final Result from Last 3 Months or Most Recently Relevant to Health Maintenance Insurance Care Teams Icer Machine Operator Relationship Specialty Start Date End Date Edu Hills MD [address] [place] [address] PCP - General FAMILY PRACTICE 05/26/24
== END 2024-10-08 10:12 | disposition home or self-care (01) ==
LOC: ANHLAB 10-09 10:11
PROVIDERS: PCP Family Medicine; Visit Provider Plastic Surgery
DX: L57.8 Other skin changes due to chronic exposure to nonionizing radiation (principal); C44.92 Squamous cell carcinoma of skin, unspecified
CPT/HCPCS: 88305

== ENCOUNTER 2024-10-15 09:36 | Outpatient (CLI) | payer OTHER, SELFPAY ==
[2024-10-15 10:01] LABS: Hematocrit 44.3 % (37.0-47.0); Hemoglobin 14.3 g/dL (12.0-15.0); Mean Corpuscular HGB Conc 32.3 g/dl (32-36); Mean Corpuscular Hemoglobin 32.1 pg (26-34); Mean Corpuscular Volume 99.3 fl (80-100); Mean Platelet Volume 9.7 fl (7.4-10.4); Platelet Count Result 281 k/mm3 (150-375); Red Blood Count 4.46 M/mm3 (4.2-5.4); Red Cell Distribution Width 14.1 % (11.5-14.5); White Blood Count 7.4 K/mm3 (4.5-10.0)
[2024-10-15 10:52] LABS: Vitamin D 25 Hydroxy 57.2 ng/mL
[2024-10-15 13:24] LABS: Alanine Aminotransferase 16 U/L (6-35); Alkaline Phosphatase 56 U/L (38-126); Anion Gap 7 mmol/L (4-12); Aspartate Amino Transferase 25 U/L (14-36); Bilirubin,Total 0.6 mg/dL (0.2-1.3); Blood Urea Nitrogen 18 mg/dL (7-17); Calcium 9.2 mg/dL (8.4-10.2); Carbon Dioxide 27 mmol/L (22-30); Chloride 101 mmol/L (98-107); Estimated Glomerular Filt Rate > 60; Glucose 78 mg/dL (65-110); Potassium 4.6 mmol/L (3.4-5.0); Sodium 135 mmol/L (137-145)
== END 2024-10-15 09:37 | disposition home or self-care (01) ==
PROVIDERS: PCP Family Medicine; Visit Provider Family Medicine
DX: R42 Dizziness and giddiness (principal); E55.9 Vitamin D deficiency, unspecified; E66.9 Obesity, unspecified; I10 Essential (primary) hypertension
CPT/HCPCS: 36415; 80053; 82306; 85027

== ENCOUNTER 2024-12-28 10:59 | Outpatient (CLI) | payer OTHER, SELFPAY ==
--- NOTE | ~2024-12-28 | XR_ITS ---
3 VIEWS LUMBAR SPINE Ordering provider: Celestina Rice APRN History: . M46.1 - Sacroiliitis, not elsewhere classified . Comparison: None. FINDINGS: VERTEBRAL BODIES: Compression fractures of T12 and L1 which are most likely chronic. Vertebroplasty i s seen in L2. Levoscoliosis. Spondylolisthesis at the level of L5-S1. Degenerative changes of the spi ne. No visible acute fracture or subluxation. DISK SPACES: Narrowing of all the disc spaces in the lumbar area. Multilevel facet degenerative disease. Left hip osteoarthritic changes. SOFT TISSUES: Normal. Spinal stimulator is seen. IMPRESSION: No acute osseous abnormality lumbar spine. Compression fractures of T12 and L1 most likely chronic. Multilevel degenerative disc disease. Reviewed, dictated and finalized at location A.
== END 2024-12-28 11:00 | disposition home or self-care (01) ==
PROVIDERS: PCP Family Medicine; Visit Provider Nurse Practitioner Adult Health
DX: M46.1 Sacroiliitis, not elsewhere classified (principal); M47.896 Other spondylosis, lumbar region; S22.080A Wedge compression fracture of T11-T12 vertebra, initial encounter for closed fracture; S32.010A Wedge compression fracture of first lumbar vertebra, initial encounter for closed fracture; X58.XXXA Exposure to other specified factors, initial encounter
CPT/HCPCS: 72110

== ENCOUNTER 2025-02-23 05:56 | Day surgery (SDC) | payer OTHER, SELFPAY ==
[2025-02-16 10:08] VITALS: BMI 28.9
--- NOTE | ~2025-02-23 | XR_ITS ---
EXAM: XR fluoroscopy no charge - 02/23/2025 8:00 CDT History: 79 years old Female with LEFT L5-S1, S1 TRANSFORAMINAL EPIDURAL STEROID INJ Fluoroscopy time: 16.9 seconds FINDINGS/ IMPRESSION: Multiple fluoroscopic images of epidural steroid injection. Reviewed, dictated and finalized at location A.
--- OUTSIDE RECORDS SUMMARY | 2025-02-23 06:57 | XMS_ITS | Clinical Summary ---
Author Organization [facility] Address [address] [place] [address] Care Team Providers Care Operator Coating Furnace Name Role Phone Alfonso Lacy MD Primary Care Provider Allergies Active Allergy Reactions Criticality Noted Date Comments Penicillins Hives,Other (See comments) Medium 06/01/2019 felt like I was out of my head Medications lisinopril (PRINIVIL,ZESTRIL ) 20 mg tabletIndications :hypertension Take 1 tablet (20 mg total) by mouth nanny caregiver before breakfast Active multivit-folic qxsw-iwbi-doo C 400-50-500 mcg-mg-mg capsuleIndication s:Vitamin Deficiency Prevention,Supple ment Take 1 tablet by mouth nanny caregiver before breakfast Active celecoxib (CeleBREX) 100 mg capsuleIndication s:Pain Take 1 capsule (100 mg total) by mouth 2 (two) times a day Active denosumab (PROLIA) 60 mg/mL syringeIndication s:postmenopausal osteoporosis and high fracture risk Inject 1 mL (60 mg total) under the skin every 6 (six) months Active turmeric root extract 500 mg capsuleIndication s:Supplement Take 1 tablet by mouth nanny caregiver before breakfast Active calcium carbonate-vit D3-min 600 mg-10 mcg (400 unit) tabletIndications :Hypocalcemia Prevention,Preven tion of Vitamin D Deficiency Take 1 tablet by mouth nanny caregiver before breakfast Active acetaminophen (TYLENOL) 500 mg tablet Take 2 tablets (1,000 mg total) by mouth every 6 (six) hours as needed for pain 30 tablet 2 Active Active Problems Problem Noted Date Diagnosed Date Fibroid 11/03/2024 Lumbar radiculopathy 06/01/2019 Overview (06/01/2019): Added automatically from request for surgery [id number] Encounters Date Type Department Care Team Description 12/25/2024 3:20 PM CDT Office Visit [facility] Obstetrics and Gynecology [address] [facility] [address] [place] [address] [place] [address] Nataliia Salcedo MD Postop check (Primary Dx) 11/27/2024 4:20 PM CDT Office Visit [facility] Obstetrics and Gynecology [address] [facility] [address] [place] [address] [place] [address] Nataliia Salcedo MD Postop check (Primary Dx) from Last 3 Months Immunizations Immunization Administration Dates Next Due Influenza, Quadrivalent, Spl it, Preservative Free, Intramuscular 04/08/2019 Influenza, Trivalent, High D ose, Split, Preservative Free, Intramuscular 04/22/2018,05/13/2017 Influenza, Trivalent, IM (MDV) 05/24/2014 Influenza, Unspecified 09/01/2014,04/13/2013 Surgical History Surgery Date Site/Laterality Comments EYE SURGERY Bilateral cataract extractions CHOLECYSTECTOMY 07/08/1944 - 07/07/1945 BUNIONECTOMY Right CARPAL TUNNEL RELEASE Right DILATION AND CURETTAGE OF UTERUS x 2 REPLACEMENT TOTAL KNEE 07/08/2020 - 07/07/2021 SPINAL CORD STIMULATOR IMPLANT 07/08/2018 - 07/07/2019 Medical History Medical History Date Comments PONV (postoperative nausea and vomiting) Hypertension Hyperlipidemia Murmur Cataract Spinal stenosis Arthritis osteoarthritis DDD (degenerative disc disease), cervical Osteoporosis Motion sickness Family History Medical History Relation Name Comments Pancreatic cancer Brother Heart attack Child 2 Bone cancer Father Anesthesia problems Mother delirium Other Mother COVID No Known Problems Sister 1 No Known Problems Sister 2 No Known Problems Sister 3 Malig Hypertension Neg Hx Malig Hyperthermia Neg Hx Pseudochol deficiency Neg Hx Relation Name Status Comments Brother Child 1 Alive Child 2 Father Mother Sister 1 Alive Sister 2 Alive Sister 3 Alive Social History Tobacco Use Types Packs/Day Years Used Date Smoking Tobacco: Never Smokeless Tobacco: Never Alcohol Use Standard Drinks/Week Comments Never 0 (1 standard drink = 0.6 oz pur e alcohol) AUDIT-C Answer Date Recorded Q1: How often do you have a drink containing alcohol? Never 11/16/2024 Q2: How many drinks containi ng alcohol do you have on a typical day when you are drinking? Patient does not drink Q3: How often do you have si x or more drinks on one occasion? Never 11/16/2024 Personal Safety Answer Date Recorded Have you ever been in or are you currently in a harmful physical or emotional relationship or is someone making you feel afraid or unsafe? 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 Gender Identity Not on file Sexual Orientation Not on file Obstetrics History Para Term AB IAB SAB Ectopic Multiple Livin g Live Births 2 2 2 0 0 0 0 0 0 2 2 Date Outcome GA Total Labor Labor/2nd/3rd Weight Sex Type Anes PTL Edda A1 A5 Name Clin Term Term Last Filed Vital Signs Vital Sign Reading Time Taken Comments Blood Pressure 120/74 12/25/2024 3:32 PM CDT Pulse 97 12/25/2024 3:32 PM CDT Temperature 36.7 C (98.1 F) 12/25/2024 3:32 PM CDT Respiratory Rate 16 12/25/2024 3:32 PM CDT Oxygen Saturation 97% 12/25/2024 3:32 PM CDT Inhaled Oxygen Concentration - - Weight 59.4 kg (131 lb) 12/25/2024 3:32 PM CDT Height 142.2 cm (4' 7.98) 12/25/2024 3:32 PM CD T Body Mass Index 29.39 12/25/2024 3:32 PM CDT Plan of Treatment Health Maintenance Due Date Last Done Comments Depression Screening 1943 DTaP/Tdap/Td Vaccine (1 - Tdap) 1954 Hepatitis B Screening 1961 Pneumococcal vaccine 65+ (1 of 1 - PCV) 1993 Zoster Vaccine (1 of 2) 1993 Well Visit 65+ 2008 Influenza Vaccine (#1) 2025 9, 04/22/2018, 05/13/2017, Additional history exists Fall Risk Assessment 11/10/2025 11/10/2024 Osteoporosis Screening-Bone Density Scan 05/28/2026 05/28/2024 Medical Devices Implanted Type Area Chief Concierge Device Identifier Shelf Expiration Date Model / Serial / Lot Med[employer]onic Inc [id number] Vectris 5mm 60cm 1x8 Electrode Mri Lead Neurostimulator - [id number] Implanted:Qty: 1 on 06/26/2019 by Trudy Khoury MD at [facility] N/A: Epidural Space [employer] 12/15/2022 [id number] / / [id number] [employer] Inc [id number] Vectris 5mm 60cm 1x8 Electrode Mri Lead Neurostimulator - [id number] Implanted:Qty: 1 on 06/26/2019 by Trudy Khoury MD at [facility] N/A: Epidural Space [employer] 12/15/2022 [id number] / / [id number] Med[employer]onic Inc [id number] Neurostimulator Implantable Chronic Pain Rs2 - [id number] - [id number] Implanted:Qty: 1 on 06/26/2019 by Trudy Khoury MD at [facility] N/A: Epidural Space [employer] 02/19/2020 [id number] / [id number] / Insurance [facility] Care Teams Operator Coating Furnace Relationship Specialty Start Date End Date Alfonso Lacy MD [address] [place] [address] PCP - General 06/26/19
[2025-02-23 07:13] VITALS: BP 124/73; PULSE 64; RESP 16; TEMP 36.7; O2SAT 99
--- NOTE | 2025-02-23 07:55 | WPDHPUPDATE1 ---
History and Physical Update Update Date/Time: 02/23/25 07:55 History and Physical has been reviewed, including an updated exam of the patient. There are NO changes in the patient's condition. Risks, benefits, and alternatives have been discussed and questions answered. Patient agrees to proceed with procedure.
--- NOTE | 2025-02-23 07:57 | P.OP_ITS ---
Procedure Note - Detailed Date of Procedure 02/23/25 Pre-op Diagnosis Lumbosacral radiculopathy, lumbosacral neural foraminal stenosis Post-op Diagnosis Same Procedure Performed Left Lumbar Transforaminal Epidural Steroid Injection under Fluoroscopic Guidance and with Contrast Control at L5-S1, S1-S2. Surgeon Amilcar Ruiz MD Anesthesia Local Description of Procedure INFORMED CONSENT: Risks, benefits and alternatives to the procedure were discussed in detail with the patient who expressed explicit understanding and consent to proceed. Patient was informed verbally and in written form regarding the risks associated with the procedure including the low risk of serious infection, bleeding/bruising, allergic reaction, nerve or organ injury, paralysis, procedural site pain or discomfort, worsening pain and/or mobility, failure to treat and/or disfigurement. The patient expressed explicit un derstanding and consent to proceed. All materials required for the procedure were available prior to procedure start. Site and side was marked prior to procedure and confirmed in the presence of the patient. PROCEDURE IN DETAIL: The patient was brought to the procedural suite and placed in the prone position. Patient was made comfortable with use of pillows under the head/chest, hips and ankles. Skin overlying the injection site was prepared broadly with ChloraPrep applicator and draped in a sterile manner. Aseptic technique was employed throughout. The endplates of the vertebral body at the site of interest were aligned in the AP view. Ipsilateral oblique angulation was utilized to better visualize the neuroforamen of interest. Local anesthesia was established by infiltration with approximately 5 mL of 0.5% PF lidocaine via a 1-1/2 inch 27-gauge needle. A 22-gauge 3.5 inch Coleman (pencil point) spinal needle was advanced until the needle approached the 6 o'clock position on the pedicle just superior to the exiting nerve root. on the left at L5-S1. Lateral view was utilized to confirm appropriate position of the needle tip within the superior and posterior portion of the respective foramen. In an AP view, 1 mL of Omnipaque 300 contrast medium was injected after negative aspiration for CSF, blood or other bodily fluid, showing appropriate neurogram without evidence of intravascular or intrathecal spread of contrast. Digital subtraction imaging was used with an additional 1ml of the same contrast medium to confirm absence of intravascular contrast spread. A 1mL solution containing 3 mg of betamethasone was injected after negative repeat aspiration. Appropriate spread of the injectate was confirmed with washout of previously injected contrast. No parasthesias were elicited. Needle was removed completely intact without difficulty. The same exact procedure was repeated for all remaining levels on the ipsilateral side, left S1-S2 neuroforamen, modified as necessary to accommodate for the new target location with identical findings and results and no evidence of complication. Images were saved and documented in the patient chart. Patient's skin was cleaned and sterile bandage applied. The patient tolerated the procedure well. The patient was transported to the recovery area in stable condition where they were observed for an appropriate amount of time prior to discharge, without evidence of complication. The patient was instructed to avoid excessive activity for the next 48 hours, including climbing and frequent use of stairs. Showers only for 48 hours. They were instructed not to drive or operate heavy machinery for 24 hours. They are to monitor for severe headaches, fevers, chills, night sweats, erythema/swelling at the site or any other signs of infection, bleeding/bruising, bowel or bladder changes as well as new pain, weakness or numbness in the upper or lower extremity. Should they notice these changes, they are instructed to call our office immediately or report directly to the nearest Emergency Department if no answer or if after posted office hours. COMPLICATIONS: None COMMENTS: None CONTRAST WASTED: 26 mL Omnipaque 300. STEROID WASTED: 0 mg of betamethasone. Complications No immediate complications Condition Stable Disposition Same day [facility] Billing Surgery - Charge Forward: Surgery Billing
[2025-02-23 08:05] VITALS: BP 169/74; PULSE 111; RESP 22; O2SAT 99
[2025-02-23] MEDS: BETAMETHASONE SODIUM PHOSPHATE PF INJ 6 MG/ML VIAL INFILTRATE (08:09)
[2025-02-23] MEDS: LIDOCAINE 1% PF INJ 5 ML VIAL INFILTRATE (08:09)
[2025-02-23] MEDS: LIDOCAINE 2% PF LOCAL INJ 5 ML VIAL INFILTRATE (08:10)
[2025-02-23 08:11] VITALS: BP 148/64; PULSE 135; RESP 18; O2SAT 99
[2025-02-23 08:20] VITALS: BP 144/73; PULSE 118; RESP 18; O2SAT 100
== END 2025-02-23 08:30 | disposition home or self-care (01) ==
PROVIDERS: PCP Family Medicine; Visit Provider Anesthesiology Pain Medicine
PROC: (CPT 64483; principal; 2025-02-23 07:50)
DX: M48.07 Spinal stenosis, lumbosacral region (principal); M54.17 Radiculopathy, lumbosacral region
CPT/HCPCS: 64483; 64484; 99199

== ENCOUNTER 2025-04-27 00:16 | Day surgery (SDC) | payer OTHER, SELFPAY ==
--- NOTE | 2025-04-21 15:19 | PC.NURSE ---
[facility] has started construction of its new state of the art ER which will open Spring 2026. With this, we anticipate parking may be a challenge for some our surgical patients and families. Parking spaces are limited but are available for all Surgical, obstetrics, and ER patients sharing this lot. If you arrive and find you are having a hard time finding a parking space, please note that we understand the challenges, please drive around the hospital and park near Hospital Entrance 1. When you enter this entrance, you can ask a volunteer to direct or take you back to the surgical waiting area to check in. We appreciate everyone?s understanding of these expected challenges while we build for your future. Report to the Outpatient Waiting Room, entrance under the green pavilion located off [address], at time _9:30 AM on date __04/27/25 . Planned Procedure Time: _11:30 AM .? Time changes happen often and if your time is changed the preop area will call you the afternoon before. - You and your visitor will be asked to self-screen and do not enter if you have any COVID symptoms. Please call surgeon if you need to reschedule. - A mask is optional within the hospital at this time. NOTHING TO EAT OR DRINK AFTER MIDNIGHT PER DR WEBER Take only the following medications with a SIP of water on the morning of surgery: __PREGABALIN DO NOT STOP ANY OF YOUR OTHER PRESCRIPTION MEDICATIONS PRIOR TO SURGERY EXCEPT THE FOLLOWING Hold all vitamins and supplements for 3 days per anesthesiologist.LAST DOSE 04/23/25 Medications to discontinue per physician ____PT STATES HOLD CELECOXIB 7 DAYS PRE OP PER DR WEBER Date to take last dose Please no make-up, nail urdu, hairspray, perfume, deodorant, or body powder the day of surgery.? No jewelry (including any body piercings) or valuables the day of surgery, leave them at home.? Please take a shower or bath the night before, AND the morning of, surgery with an antibacterial soap.? Wear comfortable, loose fitting clothing.? Children are encouraged to wear pajamas. - Jewelry must be removed prior to entering the operating room.? Rings and piercings that are not removed may be cut off. - The hospital will not accept responsibility for valuables.? - Please leave all valuables, including medications, at home the day of surgery. If you are going home after surgery, a licensed driver/refuse collector must drive you home.? - NO public transportation without another adult if you receive anesthesia. - We recommend that an adult stay with you for 24 hours following discharge. - We also recommend that you do not drive, make important decision, drink alcoholic beverages, or take any drugs that were not prescribed by your health care provider for at least 24 hours after your discharge time. For Pediatric surgeries, we recommend two adults accompany the child home. Follow any additional instructions given to you from your surgeon. Telephone instructions given to ___PATIENT and asked if any additional questions and then verbalized understanding. Patient advised to call surgeon office or pre surgery nurse liaison [phone] if any additional questions.
[2025-04-21 15:33] VITALS: BMI 28.0
--- NOTE | ~2025-04-27 | XR_ITS ---
XR fluoroscopy no charge Indication: Lumbar decompression TECHNIQUE: Fluoroscopy used during lumbar decompression performed by [Amilcar Ruiz MD] on 04/27/2025. 2 minutes 50 seconds of fluoroscopy time with 13 fluoroscopic images captured. FINDINGS: Correlate with procedure note. IMPRESSION: Fluoroscopy used during lumbar decompression. Reviewed, dictated and finalized at location O.
--- OUTSIDE RECORDS SUMMARY | 2025-04-27 00:19 | XMS_ITS | Clinical Summary ---
Author Organization [facility] Address [address] [place] [address] Care Team Providers Care Band Log Mill And Carriage Operator Name Role Phone Alfonso Lacy MD Primary Care Provider [phone] Allergies Active Allergy Reactions Criticality Noted Date Comments Penicillins Hives,Other (See comments) Medium 06/01/2019 felt like I was out of my head Medications lisinopril (PRINIVIL,ZESTRIL ) 20 mg tabletIndications :hypertension Take 1 tablet (20 mg total) by mouth early childhood associate teacher before breakfast Active multivit-folic vqey-qcwy-lzy C 400-50-500 mcg-mg-mg capsuleIndication s:Vitamin Deficiency Prevention,Supple ment Take 1 tablet by mouth early childhood associate teacher before breakfast Active celecoxib (CeleBREX) 100 mg capsuleIndication s:Pain Take 1 capsule (100 mg total) by mouth 2 (two) times a day Active denosumab (PROLIA) 60 mg/mL syringeIndication s:postmenopausal osteoporosis and high fracture risk Inject 1 mL (60 mg total) under the skin every 6 (six) months Active turmeric root extract 500 mg capsuleIndication s:Supplement Take 1 tablet by mouth early childhood associate teacher before breakfast Active calcium carbonate-vit D3-min 600 mg-10 mcg (400 unit) tabletIndications :Hypocalcemia Prevention,Preven tion of Vitamin D Deficiency Take 1 tablet by mouth early childhood associate teacher before breakfast Active acetaminophen (TYLENOL) 500 mg tablet Take 2 tablets (1,000 mg total) by mouth every 6 (six) hours as needed for pain 30 tablet 2 Active Active Problems Problem Noted Date Diagnosed Date Fibroid 11/03/2024 Lumbar radiculopathy 06/01/2019 Overview (06/01/2019): Added automatically from request for surgery [id number] Immunizations Immunization Administration Dates Next Due Influenza, [...] on file 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 Gender Identity Not on file Sexual Orientation [...] 05/28/2026 05/28/2024 Medical Devices Implanted Type Area Type Inspector Device Identifier Shelf Expiration Date Model / Serial / Lot Medtronic Inc [id number] Vectris 5mm 60cm 1x8 Electrode Mri Lead Neurostimulator - [id number] Implanted:Qty: 1 on 06/26/2019 by Trudy Khoury MD at [facility] N/A: Epidural Space [employer] 12/15/2022 [id number] / / [id number] [employer] Inc [id number] Vectris 5mm 60cm 1x8 Electrode Mri Lead Neurostimulator - [id number] Implanted:Qty: 1 on 06/26/2019 by Trudy Khoury MD at [facility] N/A: Epidural Space [employer] 12/15/2022 [id number] / / [id number] Med[employer]onic Inc [id number] Neurostimulator Implantable Chronic Pain Rs2 - [id number] - [id number] Implanted:Qty: 1 on 06/26/2019 by Trudy Khoury MD at [facility] N/A: Epidural Space [employer] Inc 02/19/2020 [id number] / [id number] / Insurance [facility] Care Teams Band Log Mill And Carriage Operator Relationship Specialty Start Date End Date Alfonso Lacy MD PCP - General 06/26/19
--- OUTSIDE RECORDS SUMMARY | 2025-04-27 00:19 | XMS_ITS | Clinical Summary ---
Author Organization [facility] Address [address] [place] [address] Care Team Providers Care Auto Winder Name Role Phone Edu Hills MD Primary Care Provider [phone] Social History Tobacco Use Types Packs/Day Years [...] 2) 12/03/2023 10/08/2023 COVID-19 Vaccine ( season) 2025 04/15/2024, 04/01/2023, 04/06/2022, Additional history exists Influenza Adult (#1) 2025 04/15/2024, 04/01/2023, 04/06/2022, Additional history exists RSV Immunization or 60+ Years Completed 04/01/2023 Pneumococcal Vaccine: 50+ Years Completed 10/08/2023 Dexa Scan (General) Completed 05/28/2024 Hepatitis A Vaccines Aged Out No long er eligible based on patient's age to complete this topic Meningococcal B Vaccine Aged Out No l onger eligible based on patient's age to complete this topic Meningococcal Vaccine Aged Out No kathia rupa eligible based on patient's age to complete this topic RSV Immunizations Under 20 Months Aged Out No longer eligible based on patient's age to complete this topic Medical Devices Implanted Type Area Sulfonator Operator Device Identifier Shelf Expiration Date Model / Serial / Lot Stimulator Lead Implant-2018 Implanted:Qty: 1 on 06/26/2019 by Trudy Khoury MD Lead Implant Spine Thoracic [employer] [id number] / [id number] / Stimulator Lead Implant-2018 Implanted:Qty: 1 on 06/26/2019 by Trudy Khoury MD Lead Implant Spine Thoracic [employer] [id number] / [id number] / Stimulator Implant-2018 Implanted:Qty: 1 on 06/26/2019 by Trudy Khoury MD Stimulator Implant Back [employer] [id number] / [id number] / Description:MR CONDITIONAL A T 1.5 T ONLY , NEED REMOTE TO VERIFY FULL BODY ELIGIBLE AND TURN OFF STIMULATION, FOLLOW SCAN CONDITIONS IN MOST RECENT MRI TECHNICAL MANUAL Procedures Procedure Name Priority Date/Time Associated Diagnosis Comments BONE DENSITY/DEXA Routine 05/28/2024 9:5 3 AM LAW TUTOR Other specified disorders of bone density and structure, right thigh Other specified disorders of bone density and structure, left thigh from Last 3 Months or Most Recently Relevant to Health Maintenance Results * BONE DENSITY/DEXA (05/28/2024 9:53 AM LAW TUTOR) Anatomical Region Laterality Modality Bone Mammography 05/28/2024 10:1 1 AM LAW TUTOR Impressions 05/28/2024 10:11 AM LAW TUTOR IMPRESSION: WHO Classification: Osteoporosis. RECOMMENDATIONS: All patients [...] 05/28/2024 10:11 AM Narrative 05/28/2024 10:11 AM LAW TUTOR [facility] [address] [place] [address] EXAMINATION: BONE DENSITY/DEXA INDICATIONS: Other specified disorders [...] Procedure Note Freddie Agrawal MD - 05/28/2024 [facility] [address] [place] [address] EXAMINATION: BONE DENSITY/DEXA INDICATIONS: Other specified disorders [...] Most Recently Relevant to Health Maintenance Insurance [employer] Care Teams Auto Winder Relationship Specialty Start Date End Date Edu Hills MD [address] [place] [address] PCP - General FAMILY PRACTICE 05/26/24
[2025-04-27 09:35] VITALS: BP 146/89; PULSE 120; RESP 18; TEMP 36.4; O2SAT 97
[2025-04-27] MEDS: LACTATED RINGERS 1,000 ML 30 ML IV CONT (09:56)
--- NOTE | 2025-04-27 10:11 | PM.HPGS ---
History of Present Illness History of Present Illness Consent: Risks, benefits, and alternatives have been discussed and questions answered. Patient agrees to proceed with procedure. Chief complaint: lumbar spinal stenosis with neurogenic claudicatio Narrative: Lyly Pham is a 80 year old female with chronic, recalcitrant and disabling bilateral lumbosacral low back and leg pain secondary to lumbar spinal stenosis with neurogenic claudication and ligamentum flavum hypertrophy with failure to respond to aggressive conservative measures including PT, oral and topical analgesics, opioid and nonopioid analgesics, rest, time and activity/behavioral modification over the past 1-2 years who presents for minimally invasive lumbar decompression of the bilateral L3-4, L 4-5 levels under fluoroscopic guidance with possible epidurogram. Review of Systems Review of Systems: Patient denies any new infectious, allergic, cardiopulmonary, neurologic or constitutional symptoms or changes in activity tolerance or exercise capacity including new or progressive SOB/ANDERSON, peripheral edema, productive cough, dysuria, nausea/vomiting, diarrhea, weight change, fevers/chills/night sweats, new or progressive neurologic deficit, cognitive or mood changes since last seen, except as documented in the HPI. All systems reviewed & are unremarkable except as noted in HPI and below PMFSH Past Medical History Medical History Sacroiliitis Left hip pain Lumbar radiculopathy Colon polyp Persistent hematuria Arthritis Shortness of breath Weight gain Claustrophobia Degenerative joint disease of knee Bilateral knee pain Encounter for screening colonoscopy Osteoarthritis Vaccine counseling Obesity (BMI 35.0-39.9 without comorbidity) Stress Hypoglycemia Dyslipidemia Hx of colonic polyps Microscopic hematuria Midline low back pain without sciatica Osteopenia of necks of both femurs Vertigo Surgical History Surgical History History of total right knee replacement History of hysterectomy S/P total knee arthroplasty S/P insertion of spinal cord stimulator 2019, [facility] History of D&C 2017, Dr. Cortes History of cholecystectomy 1975 History of carpal tunnel release History of foot surgery Bunionectomy History of cataract extraction 2019, [facility] Family History Family History Father Family history of malignant neoplasm of bone Other Arthritis Social History Social History (Reviewed 03/17/25 @ 10:19 by WALESKA Blackburn Smoking status: Never smoker Second hand tobacco smoke exposure: Yes Additional smoking assessment comments: DENIES ANY FORM OF TOBACCO USE Alcohol intake: never Substance use: never Substance use type: does not use Lack of Transportation: No Lack of Food: Never True Current Housing: I Have Housing Concerned About Future Housing: No Difficulty Paying Gas/Electric Bills: No Difficulty Paying for Meds: No Currently Unemployed: No Education: Bachelor's Degree Difficulty w/ Childcare or Family Care: No Living arrangements: alone Occupation/Education: retired Gender identity (if verbalized by the patient): Female Spiritual care concerns: No Meds Home Medications and Allergies Home Medications ?Medication ?Instructions ?Recorded ?Confirmed ?Type multivitamin,at-hwwf-lekcapxb 1 tablet PO DAILY 01/26/21 04/27/25 History acetaminophen 500 mg capsule 500 mg PO Q6H PRN pain 08/18/24 04/21/25 History lisinopril 20 mg tablet See Rx Instructions .Route 01/01/25 04/27/25 Rx .COMPLEX #90 tabs zoledronic acid 5 mg/100 mL in See Rx Instructions IV ONCE 02/01/25 03/17/25 Rx mannitol 5 %-water intravenous piggybck (Reclast) pregabalin 50 mg capsule 50 mg PO BID #60 caps 03/17/25 04/27/25 Rx celecoxib 100 mg capsule See Rx Instructions .Route 04/19/25 04/27/25 Rx .COMPLEX #180 caps Allergies Allergy/AdvReac Type Severity Reaction Status Date / Time Penicillins Allergy Severe Hives Verified 04/27/25 10:04 vancomycin AdvReac Mild Rash and Verified 04/27/25 10:04 itching Vital Signs Vital Signs - 24 hr 04/27/25 09:35 Temperature 97.6 F Pulse Rate 120 H Respiratory Rate 18 Blood Pressure 146/89 H Pulse Oximetry 97 Oxygen Delivery Room Air Exam Narrative: The patient's physical exam is essentially unchanged from prior examination on 03/17/2025. Specifically, patient demonstrates normal lung capacity, tidal volume and respiratory rate without wheezes, crackles, rales or rubs. Heart rate and rhythm are regular without murmurs, gallops or rubs. No JVD. Pulses 2+ globally without increasing peripheral edema. AAOx3 with no evidence of confusion, intoxication or altered mental state, NC/AT without acute distress or altered consciousness. Speech, cognition, mood, insight and judgment at baseline and within normal limits. Assessment and Plan Assessment and plan (1) Spinal stenosis, lumbar region with neurogenic claudication: Code(s): M48.062 - Spinal stenosis, lumbar region with neurogenic claudication Status: Acute Assessment and Plan: Proceed as planned with minimally invasive lumbar decompression of the bilateral L3-4, L 4-5 levels under fluoroscopic guidance with possible epidurogram. (2) Chronic low back pain with left-sided sciatica: Qualifiers: Back pain laterality: left Qualified Code(s): M54.42 - Lumbago with sciatica, left side; G89.29 - Other chronic pain Code(s): M54.42 - Lumbago with sciatica, left side; G89.29 - Other chronic pain Status: Acute
--- NOTE | 2025-04-27 10:15 | WPDHPUPDATE1 ---
History and Physical Update Update Date/Time: 04/27/25 10:15 History and Physical has been reviewed, including an updated exam of the patient. There are NO changes in the patient's condition. Risks, benefits, and alternatives have been discussed and questions answered. Patient agrees to proceed with procedure.
--- NOTE | 2025-04-27 10:21 | W.PM.PROC2 ---
Procedure Note - Detailed Date of Procedure 04/27/25 Pre-op Diagnosis lumbar spinal stenosis with neurogenic claudicatio Post-op Diagnosis Same Procedure Performed Bilateral Minimally Invasive Lumbar Decompression (MILD) at L3-4, L4-5 under Fluoroscopic Guidance. Surgeon Amilcar Ruiz MD Cryptologic Supervisor None Anesthesia Other ([Moderate IV sedation/MAC] with local anesthetic infiltration in the prone position) Description of Procedure INFORMED CONSENT: Risks, benefits, and alternatives to the procedure were discussed in detail with the patient who expressed explicit understanding and consent to proceed. Risks discussed with the patient included but were not limited to risk of serious local or systemic infection, bleeding/bruising, epidural hematoma, dural puncture or tear resulting in CSF leak and acute or chronic post-dural puncture headache, scarring/deformity, immediate or delayed allergic reaction, decreased mobility, failure to treat pain, inadvertent neurologic injury resulting in increased pain, weakness/paralysis or numbness, inadvertent organ injury, need for additional surgery, allergic reaction, heart attack, stroke, seizure, coma, . Anesthetic risks were also briefly discussed by myself and the emergency room technician. The patient expressed understanding and consent to proceed, agreeing that potential benefits outweigh risk of harm. All materials required for the procedure were immediately available prior to procedure start. Site and side were confirmed with the patient, compared carefully to the patient chart and consent, and marked prior to transport to the operating room. Appropriate time out procedure was performed per protocol prior to procedure start. PROCEDURE IN DETAIL: The patient was brought to the operative suite and placed in the prone position. Appropriate ASA standard monitors were attached. Anesthesia was initiated without difficulty or event. Eyes were protected. Pressure points were padded with joints in neutral position. When appropriate, breasts and genitals were evaluated and protected. Eyes were checked and were free from undue pressure. Skin overlying the procedure site was marked with sterile marker. Surgical area was prepared in a typical sterile fashion with ChloraPrep and allowed to dry for at least 3 minutes prior to sterilely draping the surgical site. The lumbar spine was identified in the AP fluoroscopic view with slight cephalad tilt perfectly aligning the endplates at the targeted levels with spinous processes bisecting the transpedicular plane. After identifying the intended incision site approximately 1.5 levels inferior to the level of interest, the area was anesthetized by infiltration with no more than 10ml of a 1:1 admixture of 0.5% PF bupivacaine with epinephrine and 2% PF lidocaine with epinepherine via a 27-gauge needle after negative aspiration. A 22-gauge spinal needle was used to provide additional and adequate local anesthesia to the level of the interspinous ligament, ligamentum flavum and the periosteum of the lamina at the intended treatment levels. In the AP view, a #11 scalpel blade was used to create a single stab incision at the intended incision site on the targeted side. The Vertos MILD kit was opened and the included cannula and trocar assembly was advanced through the incision to contact the midportion of the right lamina just adjacent to the spinous process at L5. Once seated, the lateral view was used to gauge depth demonstrating the most anterior tip of the trocar posterior to the epidural space at all times. The on air talent-provided cannula stabilizer was placed over the trocar flush to the patient's lumbar flank. Cannula obturator with handle was removed. Included depth guide was then attached to the insertion port on the cannula and set to an initial depth of 15 mm. The bone rongeur was advanced to the depth of the lumbar lamina at the targeted level. Depth gauge was then adjusted allowing rongeur tip to advance in the contralateral oblique view to the anterior border of the superior and inferior lamina at the respective intervertebral foramen. Multiple passes of the rongeur were used in the contralateral oblique view to remove single small portions of ligament and bone in a 360-degree distribution, approximately 3-5 passes on each lamina, until appropriate access to the superior and inferior attachments of the ligamentum flavum was created at the surgical level right L4-5. Each individual portion of bone removed was extracted, collected and discarded. Rongeur was removed and replaced with a tissue sculpter which was deployed from inferior to superior in the contralateral oblique view to delaminate the ligamentum flavum at the intended level with serial groupings of three passes each, 6-9 total per side treated. Tissue extracted was discarded. At no point did the rongeur or tissue sculpter violate the anterior border of the ligament as evidenced by intact interface at the ligament/epidural border. The same procedure was repeated in the exact same fashion, utilizing the initial stab incision, to effectively debulk the ligamentum flavum and decompress the central spinal canal on the right at L3-4, with similar results and no evidence of complication. The same exact procedure was then repeated in the exact same fashion, utilizing a new stab incision on the contralateral side, to effectively debulk the ligamentum flavum and decompress the central spinal canal on the left at L3-4, L4-5. Bone and tissue sculpters were withdrawn, obturator replaced and trocar removed in the lateral view, entirely and without difficulty. Hemostasis was obtained and confirmed. Benzoin was placed around the incision site(s) and Steri-Strips were placed in a paco-crossing fashion across the wound(s), which were then covered with Telfa dressing and Tegaderm. The patient was converted to the supine position and transported to the recovery area having tolerated the procedure well with no evidence of complication. The patient was instructed to minimize weightbearing activity, including ambulation, for 48 hours, and to avoid bending, twisting at the waist, overhead work, reaching and lifting, pushing or pulling greater than 5-10 lbs for 48 hours with subsequent return to normal activity as tolerated. The patient is to maintain current dressing for 48 hours, then can remove the original dressing, leaving steri-strips in place until they come off on their own or are removed by their provider. Once removing the outer bandage, the patient will cover the incision with clean gauze and paper tape as needed, changing daily or when soiled. The patient understands they should avoid soaking or submerging the incision for 1 week and can resume showers after 48 hours. Instructions were provided to the patient in both verbal and written form, which the patient obtained, reviewed and signed prior to discharge. The patient was instructed to watch for signs of infection including fevers, chills, night sweats, severe headache, neck stiffness, new neurologic deficit, bowel or bladder changes, increased pain, discharge, bleeding, swelling, opening of or unusual warmth at the incision site. They are to call our office or report directly to the Emergency Department immediately should there be any signs/symptoms of complications such as the above or any other urgent/emergent changes in their condition. COMMENTS: None. COMPLICATIONS: None. DRAINS/PACKING: None. SPECIMEN: None. ESTIMATED BLOOD LOSS: 10 mL. IV FLUIDS: On chart. CONTRAST WASTED: 0 ml of Isovue 300M. Pathology None sent Complications No immediate complications Condition Stable Disposition PACU [facility] Billing Surgery - Charge Forward: Surgery Billing
--- NOTE | 2025-04-27 13:28 | SUR.PREOP ---
1250 PT AND FAMILY UPDATED FOR SURGERY TIME DELAY
[2025-04-27] MEDS: LIDOCAINE 1% PF INJ 5 ML VIAL 10 ML INFILTRATE (13:50)
--- NOTE | 2025-04-27 13:51 | WPDANESEPPF ---
Anes - Initial Pre Proc Eval Procedure: Operation Date: 04/27/25 11:30 Proposed Procedures p Minimally Invasive Lumbar Decompression at Bilateral L3-4, L4-5 Under Fluoroscopic Guidance, Possible Epidurogram - Amilcar Ruiz MD Date/Time: 04/27/25 13:51 Surgeon: Amilcar Ruiz MD Pre Op Diagnosis: lumbar spinal stenosis with neurogenic claudicatio Patient Data Age: 80 Gender: F Height: 1.42 m Weight: 58.7 kg Last Vital Signs Temp 97.6 F 04/27/25 09:35 Pulse 120 H 04/27/25 09:35 Resp 18 04/27/25 09:35 BP 146/89 H 04/27/25 09:35 Pulse Ox 97 04/27/25 09:35 O2 Del Method Room Air 04/27/25 09:35 Allergies Allergy/AdvReac Type Severity Reaction Status Date / Time Penicillins Allergy Severe Hives Verified 04/27/25 10:04 vancomycin AdvReac Mild Rash and Verified 04/27/25 10:04 itching Home Medications ?Medication ?Instructions ?Recorded ?Confirmed ?Type multivitamin,ww-huqi-cipsmjlk 1 tablet PO DAILY 01/26/21 04/27/25 History acetaminophen 500 mg capsule 500 mg PO Q6H PRN pain 08/18/24 04/21/25 History lisinopril 20 mg tablet See Rx Instructions .Route 01/01/25 04/27/25 Rx .COMPLEX #90 tabs zoledronic acid 5 mg/100 mL in See Rx Instructions IV ONCE 02/01/25 03/17/25 Rx mannitol 5 %-water intravenous piggybck (Reclast) pregabalin 50 mg capsule 50 mg PO BID #60 caps 03/17/25 04/27/25 Rx celecoxib 100 mg capsule See Rx Instructions .Route 04/19/25 04/27/25 Rx Held on 04/27/25. .COMPLEX #180 caps Instructions: Resume on 04/29/25. hold x 48 hours cyclobenzaprine 10 mg tablet 10 mg PO TID PRN muscle spasm 7 04/27/25 Rx days #20 tabs hydrocodone 5 mg-acetaminophen 325 1 tablet PO Q6H PRN pain 7 days 04/27/25 Rx mg tablet #30 tabs methylprednisolone 4 mg tablets in See Rx Instructions PO .COMPLEX 04/27/25 Rx a dose pack (Medrol (Mian)) #21 ea Patient hx anesthesia problems: none Family hx anesthesia problems: none Results Review: All pre-operative results and documents have been reviewed as part of the pre-operative evaluation. [facility] Past Medical History Medical History Sacroiliitis Left hip pain Lumbar radiculopathy Colon polyp Persistent hematuria Arthritis Shortness of breath Weight gain Claustrophobia Degenerative joint disease of knee Bilateral knee pain Encounter for screening colonoscopy Osteoarthritis Vaccine counseling Obesity (BMI 35.0-39.9 without comorbidity) Stress Hypoglycemia Dyslipidemia Hx of colonic polyps Microscopic hematuria Midline low back pain without sciatica Osteopenia of necks of both femurs Vertigo Surgical History Surgical History History of total right knee replacement History of hysterectomy S/P total knee arthroplasty S/P insertion of spinal cord stimulator 2019, [facility] History of D&C 2017, Dr. Cortes History of cholecystectomy 1975 History of carpal tunnel release History of foot surgery Bunionectomy History of cataract extraction 2019, [facility] Family History Family History Father Family history of malignant neoplasm of bone Other Arthritis Social History Social History Smoking status: Never smoker Second hand tobacco smoke exposure: Yes Additional smoking assessment comments: DENIES ANY FORM OF TOBACCO USE Alcohol intake: never Substance use: never Substance use type: does not use Lack of Transportation: No Lack of Food: Never True Current Housing: I Have Housing Concerned About Future Housing: No Difficulty Paying Gas/Electric Bills: No Difficulty Paying for Meds: No Currently Unemployed: No Education: Bachelor's Degree Difficulty w/ Childcare or Family Care: No Living arrangements: alone Occupation/Education: retired Gender identity (if verbalized by the patient): Female Spiritual care concerns: No Anes - Eval Final PreProcedure Day of Procedure 04/27/25 13:51 Patient weight: normal Lungs: normal air movement Airway: Mallampati scale class III Neurological: alert and oriented Last oral intake: >/= 8 hours ASA classification: II Emergent: no Anesthetic plan: proceed Anesthesia type and monitoring: general GIVS and standard monitoring Results Review: All pre-operative results and documents have been reviewed as part of the pre-operative evaluation. HTN, borderline hyperlipidemia, no meds, pt very active w water aerobics 5 x weekly, no cp or sob. Informed Consent: The patient's anesthetic plan and its attendant risks and benefits were discussed with the patient/family/POA. Questions were solicited and answers provided to the satisfaction of the patient/family/POA.
[2025-04-27] MEDS: ceFAZolin 2 GM in SODIUM CHLORIDE 0.9% IV 50 ML 100 ML IVPB (13:58)
[2025-04-27 14:37] VITALS: BP 144/73; PULSE 74; RESP 16; O2SAT 98
[2025-04-27 15:05] VITALS: BP 154/70; PULSE 67; RESP 20
[2025-04-27 15:30] VITALS: BP 154/76; PULSE 63; RESP 20
== END 2025-04-27 15:42 | disposition home or self-care (01) ==
PROVIDERS: PCP Family Medicine; Visit Provider Anesthesiology Pain Medicine
PROC: (CPT 0275T; principal; 2025-04-27 11:30)
DX: M48.062 Spinal stenosis, lumbar region with neurogenic claudication (principal); M54.42 Lumbago with sciatica, left side; G89.18 Other acute postprocedural pain; I10 Essential (primary) hypertension; E78.5 Hyperlipidemia, unspecified; F40.240 Claustrophobia; E16.2 Hypoglycemia, unspecified; G89.29 Other chronic pain; M17.10 Unilateral primary osteoarthritis, unspecified knee; R31.29 Other microscopic hematuria; Z79.891 Long term (current) use of opiate analgesic; Z79.1 Long term (current) use of non-steroidal anti-inflammatories (NSAID); Z98.890 Other specified postprocedural states; Z96.82 Presence of neurostimulator; Z90.49 Acquired absence of other specified parts of digestive tract; Z86.0100 Personal history of colon polyps, unspecified; Z80.8 Family history of malignant neoplasm of other organs or systems; Z00.6 Encounter for examination for normal comparison and control in clinical research program
CPT/HCPCS: 0275T; 99199; J0690; C1889; J2003; J2405; J2704; J3010; J7120